=== PATIENT | female | born 1945 | race Caucasian/White ===

== ENCOUNTER 2016-09-30 12:01 | Inpatient (IN) ==
[2016-09-30 12:28] LABS: Basophils # 0.1 K/mcL (0.0-0.2); Basophils % 1.1 %; Eosinophils # 0.2 K/mcL (0.0-0.6); Eosinophils % 2.7 %; Hematocrit 41.5 % (35.3-44.9); Hemoglobin 13.5 g/dL (11.5-15.4); Immature Granulocytes % 0.2 % (0-4); Lymphocytes # 2.7 K/mcL (0.6-4.6); Lymphocytes % 41.3 %; Mean Corpuscular HGB Conc 32.5 g/dL (31.6-35.5); Mean Corpuscular Hemoglobin 31.2 pg (28.0-33.3); Mean Corpuscular Volume 95.8 fL (83.0-100.0); Mean Platelet Volume 9.2 fL (9.4-12.4); Monocytes # 0.6 K/mcL (0.0-1.3); Monocytes % 9.1 %; Platelet Count 242 K/mcL (140-400); Red Blood Count 4.33 M/mcL (3.82-4.97); Red Cell Distribution Width 14.2 % (11.5-14.5); Segmented Neutrophils % 45.6 %
[2016-09-30 12:42] LABS: BUN/Creatinine Ratio 18 (6-26); Blood Urea Nitrogen 16 mg/dL (7-20); Calcium 9.5 mg/dL (8.6-10.8); Carbon Dioxide 26 mEq/L (19-29); Chloride 101 mEq/L (98-109); Glucose 107 mg/dL (70-99); Osmolality,Calculated 284 (280-300); Potassium 4.4 mEq/L (3.5-4.5); Sodium 136 mEq/L (136-145); eGFR For African Americans > 60 (> 60); eGFR For Non-African Americans > 60 (> 60)
[2016-09-30 12:47] LABS: INR 1.1; Prothrombin Time 12.3 Seconds (9.4-12.1)
[2016-09-30 12:49] LABS: Activated Partial Thrombo Time 35.6 Seconds (26.0-36.0)
[2016-09-30 13:41] LABS: Bilirubin,Urine Negative (Negative); Blood,Urine Negative (Negative); Clarity,Urine Clear (Clear); Color,Urine Yellow (Yellow); Glucose,Urine (UA) Normal (Normal); Ketones,Urine Negative (Negative); Leukocyte Esterase,Urine Negative (Negative); Nitrite,Urine Negative (Negative); Protein,Urine Negative (Neg-Trace); Specific Gravity,Urine 1.006 (1.010-1.025); Urobilinogen,Urine Normal (Normal)
--- NOTE | 2016-09-30 15:48 | Emergency Department Note ---
Disposition Clinical Impression: CVA (cerebral vascular accident) Disposition: Admitted As Inpatient Referrals: Marielos Pruett DO [Primary Care Provider] - Neuro HPI - General Stated Complaint: Nuero Symptoms Time Seen by Provider: 09/30/16 12:06 Source: family Limitations: no limitations Nursing Notes Reviewed: Yes Vital Signs Reviewed: Yes - History of Present Illness HPI Narrative: Patient is a 71-year-old female who is complaining of symptoms for the last 3 days involving some numbness and heaviness feeling in her left side of her body and also states her left arm feels a little weak. She states the symptoms have been waxing and waning she was more concerned so she came in today for evaluation. Symptom Onset Unknown: Yes Location: left arm, left leg Severity: mild Quality: weakness, numbness Symptoms Improving: No Improves with: none Worsens with: none Associated symptoms: Reports: denies other symptoms Treatments Prior to Arrival: none - Related Data Allergies/Adverse Reactions: Allergies Allergy/AdvReac Type Severity Reaction Status Date / Time sulfacetamide Allergy Confusion Verified 01/06/16 10:50 [From Sulfamide] atorvastatin [From Lipitor] AdvReac Insomnia Verified 01/06/16 10:50 All systems ED: reviewed and negative except as stated. Constitutional: Denies: fever, weight change Cardiovascular: Denies: chest pain, palpitations Gastrointestinal: Denies: nausea, vomiting Past Medical History - Past Medical History Source: patient, old records reviewed, obtained from family, nursing notes reviewed Medical history: Reports: arthritis, diabetes, fibromyalgia, hyperlipidemia, hypertension, renal disease, thyroid disease, other Psychiatric history: Reports: anxiety, depression - Social History Smoking Status: Never smoker Smokeless Tobacco Status: No Alcohol use: Reports: none Drug use: Reports: none Physical Exam - General Limitations: no limitations General appearance: alert - Head Head exam: atraumatic, normocephalic, normal inspection - Eye Eye exam: Present: normal appearance, PERRL, EOMI - Expanded Eye Exam Pupils: Left: reactive - ENT ENT exam: normal exam, normal oropharynx, mucous membranes moist - Expanded ENT Exam External ear exam: Present: normal external inspection Mouth exam: Present: normal external inspection Teeth exam: Present: normal inspection Throat exam: Present: normal inspection - Neck Neck exam: Present: normal inspection, full ROM, trachea midline - Chest Chest inspection: Present: normal inspection, symmetric chest wall rise - Respiratory Respiratory exam: Present: normal lung sounds bilaterally - Cardiovascular Cardiovascular exam: Present: regular rate, normal rhythm, normal heart sounds - Abdominal Exam Abdominal exam: Present: soft, Non-Tender. Absent: tenderness, distention, guarding, rebound, rigidity - Extremities Exam Extremities exam: Present: normal inspection, full ROM. Absent: tenderness, pedal edema - Expanded Upper Extremity Exam Shoulder exam: Present: normal inspection, full ROM Arm exam: Present: normal inspection, full ROM Elbow exam: Present: normal inspection, full ROM Forearm/Wrist exam: Present: normal inspection, full ROM Hand exam: Present: normal inspection, full ROM Vascular exam: Normal: capillary refill, radial pulse - Expanded Lower Extremity Exam Hip/Pelvis exam: Present: normal inspection, full ROM Upper leg exam: Present: normal inspection, full ROM Knee exam: Present: normal inspection, full ROM Lower leg exam: Present: normal inspection, full ROM Ankle exam: Present: normal inspection, full ROM Foot/toe exam: Present: normal inspection, full ROM Neurovascular/Tendon exam: Absent: motor deficit, sensory deficit, tendon deficit - Back Exam Back exam: Present: normal inspection, full ROM. Absent: tenderness - Neurological Exam Neurological exam: Present: alert, oriented X3 - Expanded Neurological Exam Patient oriented to: Present: person, place, time Motor strength - LUE: 4/5 (slightly decreased 3d specialist strenght) Coma Scale Eye Opening: Spontaneous Coma Scale Motor Response: Obeys Commands Coma Scale Verbal Response: Oriented Coma Scale Total: 15 - Psychiatric Psychiatric exam: Present: normal affect, normal mood - Skin Skin exam: Present: warm, dry, intact, normal color Course - Consultations Consultation #1: dr. ramsey increase to full dose aspirin Time: 16:21 Vital Signs Temperature 97.3 F L 09/30/16 12:14 Pulse Rate 62 09/30/16 12:14 Respiratory Rate 16 09/30/16 12:14 Blood Pressure 124/63 09/30/16 12:14 O2 Sat by Pulse Oximetry 96 09/30/16 12:14 Temperature 97.3 F L 09/30/16 12:14 Pulse Rate 58 09/30/16 15:00 Respiratory Rate 16 09/30/16 15:00 Blood Pressure 105/54 09/30/16 15:00 O2 Sat by Pulse Oximetry 96 09/30/16 15:00 Oxygen Delivery Oxygen Delivery Room Air Neuro Symptoms/Deficit - Differential Diagnosis Likely: cerebrovascular accident, subarachnoid hemorrhage, transient cerebral ischemia, multiple sclerosis, convulsions - Medical Records Medical records reviewed: Yes I reviewed the patient's medical records. - Lab Data Lab results reviewed: Yes I reviewed the patient's lab results. Result diagrams: 09/30/16 12:20 09/30/16 12:20 Lab Results 09/30/16 09/30/16 09/30/16 Range/Units 12:20 12:20 12:20 WBC 6.6 (4.3-11.1) K/mcL RBC 4.33 (3.82-4.97) M/mcL Hgb 13.5 (11.5-15.4) g/dL Hct 41.5 (35.3-44.9) % MCV 95.8 (83.0-100.0) fL MCH 31.2 (28.0-33.3) pg MCHC 32.5 (31.6-35.5) g/dL RDW 14.2 (11.5-14.5) % Plt Count 242 (140-400) K/mcL MPV 9.2 L (9.4-12.4) fL Immature Gran % 0.2 (0-4) % Seg Neutrophils % 45.6 % Lymphocytes % 41.3 % Monocytes % 9.1 % Eosinophils % 2.7 % Basophils % 1.1 % Neutrophils # 3.0 (1.6-8.9) K/mcL Lymphocytes # 2.7 (0.6-4.6) K/mcL Monocytes # 0.6 (0.0-1.3) K/mcL Eosinophils # 0.2 (0.0-0.6) K/mcL Basophils # 0.1 (0.0-0.2) K/mcL PT 12.3 H (9.4-12.1) Seconds INR 1.1 APTT 35.6 (26.0-36.0) Seconds Sodium 136 (136-145) mEq/L Potassium 4.4 (3.5-4.5) mEq/L Chloride 101 (98-109) mEq/L Carbon Dioxide 26 (19-29) mEq/L BUN 16 (7-20) mg/dL Creatinine 0.89 (0.57-1.11) mg/dL Est GFR ( Amer) > 60 (> 60) Est GFR (Non-Af Amer) > 60 (> 60) BUN/Creatinine Ratio 18 (6-26) Glucose 107 H (70-99) mg/dL Calculated Osmolality 284 (280-300) Calcium 9.5 (8.6-10.8) mg/dL Troponin I (0-0.03) ng/mL Urine Color (Yellow) Urine Clarity (Clear) Urine pH (5.0-8.0) pH Units Ur Specific [place] (1.010-1.025) Urine Protein (Neg-Trace) mg/dL Urine Glucose (UA) (Normal) mg/dL Urine Ketones (Negative) mg/dL Urine Blood (Negative) Urine Nitrite (Negative) Urine Bilirubin (Negative) Urine Urobilinogen (Normal) mg/dL Ur Leukocyte Esterase (Negative) Ur Culture Indicated? (NO) 09/30/16 09/30/16 Range/Units 12:20 13:24 WBC (4.3-11.1) K/mcL RBC (3.82-4.97) M/mcL Hgb (11.5-15.4) g/dL Hct (35.3-44.9) % MCV (83.0-100.0) fL MCH (28.0-33.3) pg MCHC (31.6-35.5) g/dL RDW (11.5-14.5) % Plt Count (140-400) K/mcL MPV (9.4-12.4) fL Immature Gran % (0-4) % Seg Neutrophils % % Lymphocytes % % Monocytes % % Eosinophils % % Basophils % % Neutrophils # (1.6-8.9) K/mcL Lymphocytes # (0.6-4.6) K/mcL Monocytes # (0.0-1.3) K/mcL Eosinophils # (0.0-0.6) K/mcL Basophils # (0.0-0.2) K/mcL PT (9.4-12.1) Seconds INR APTT (26.0-36.0) Seconds Sodium (136-145) mEq/L Potassium (3.5-4.5) mEq/L Chloride (98-109) mEq/L Carbon Dioxide (19-29) mEq/L BUN (7-20) mg/dL Creatinine (0.57-1.11) mg/dL Est GFR ( Amer) (> 60) Est GFR (Non-Af Amer) (> 60) BUN/Creatinine Ratio (6-26) Glucose (70-99) mg/dL Calculated Osmolality (280-300) Calcium (8.6-10.8) mg/dL Troponin I 0.01 (0-0.03) ng/mL Urine Color Yellow (Yellow) Urine Clarity Clear (Clear) Urine pH 7.0 (5.0-8.0) pH Units Ur Specific [place] 1.006 L (1.010-1.025) Urine Protein Negative (Neg-Trace) mg/dL Urine Glucose (UA) Normal (Normal) mg/dL Urine Ketones Negative (Negative) mg/dL Urine Blood Negative (Negative) Urine Nitrite Negative (Negative) Urine Bilirubin Negative (Negative) Urine Urobilinogen Normal (Normal) mg/dL Ur Leukocyte Esterase Negative (Negative) Ur Culture Indicated? NO (NO) - Radiology Data Radiology results reviewed: Yes I reviewed the patient's radiology results. TPA Checklist - LKW: 3-4.5 hrs Add. Contraindications Patient/family understanding: The patient/family members have been counseled and understood the risk, benefit , and alternatives of treatment.
[2016-09-30] MEDS ORDERED: Aspirin 81 MG TAB.CHEW PO STA (16:12)
--- NOTE | 2016-09-30 19:55 | Electrocardiograph Report ---
[place] [email or web address] 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
[2016-09-30] MEDS ORDERED: Naloxone 0.4 MG/ML INJ IVP PRN (20:20)
[2016-09-30] MEDS ORDERED: Saline Nasal Spray 44 ML BOTTLE NS PRN (20:23)
[2016-09-30] MEDS ORDERED: Dextrose Gel 15 GM PO PRN ×2 (20:27)
[2016-09-30] MEDS ORDERED: *HR* Dextrose 50 % in Water (Syg) 50 ML SYRINGE IVP PRN (20:27)
--- NOTE | 2016-09-30 20:47 | Internal Med History&Physical ---
<MedranoLaurence M - Last Filed: 09/30/16 23:51> Date of Encounter: 09/30/16 Time of Encounter: 20:39 Assessment and Plan (1) CVA (cerebral vascular accident) Current visit: Yes Status: Acute Patient reporting left sided weakness, lip numbness and left sided facial tingling. MRI of the brain shwed lat acute to subacute lacunar infarct in the right thalamus with no significant mass effect or midline shift with a chronic lacunar infarct in the left ashia. Patient with weakness in the LUE and LLE on exam. Given 325mg of aspirin in ED. Neurology consulted echocardiogram ordered MR angio of head and neck without contrast ordered continue low-dose aspirin and home dose of Pravastatin tomorrow Await recommendations from neurology for initiation of possible second anti- platelet agent Lipid panel with AM labs PT/OT and speech therapy consulted. 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 (2) Type 2 diabetes mellitus Current visit: Yes Status: Acute Diabetic diet Well controlled as evidenced by last Hgb A1c of 5.4% in June check blood sugar ACHS continue basal dose of insulin 20u SQ Levemir daily Low dose sliding scale ACHS hypoglycemic protocol Qualifiers: Diabetes mellitus complication status: with neurologic complications Diabetes mellitus complication detail: with polyneuropathy Diabetes mellitus correction insulin use: with correction use Qualified Code(s): E11.42 - Type 2 diabetes mellitus with diabetic polyneuropathy; Z79.4 - long term care pharmacist (current) use of insulin (3) Hypertension Current visit: Yes Status: Acute Continue home doses of atenolol, lisinopril and spironolactone. Qualifiers: Hypertension type: essential hypertension Qualified Code(s): I10 - Essential (primary) hypertension (4) DVT prophylaxis Current visit: Yes Status: Acute Ambulate with assistance anti-embolic stockings Lovenox 40mg SQ daily Internal Medicine - H&P: HPI Chief complaint: left sided weakness Admitted From: Emergency Dept Plans for Post Hospital Care: Home History of present illness: Ms. Christian is a 71 year old female with hypertension, hyperlipidemia, diabetes, hypothyroid, CAD, neuropathy, arthritis, and fibromyalgia presented to the emergency department today with concerns about left-sided weakness. She reports that several days ago her left arm started having tingling and which progressed to numbness and she noticed she had trouble walking on and off. She reports that this morning her left arm was heavy and she could not lift anything in addition to that when she woke up this morning her lips were numb in the left side of her face felt numb and tingly. She denies any slurred speech, trouble swallowing, lightheadedness, dizziness, vision changes, or hearing changes. She denies any trouble with word finding, memory, or confusion. She is also reporting left-sided abdominal pain, but no problems with bowel movements, no dysuria. She denies any nausea, vomiting, fever, chills, sweats, body aches. Evaluation in the emergency department included a CT of the abdomen and pelvis which showed no acute abnormality. Bone and was negative at 0.01. MRI of her head and brain showed a late acute to subacute lacunar infarct in the right thalamus with no significant mass effect or midline shift. Also a chronic lacunar infarct in the left ashia. On exam, patient is alert and oriented, in no acute distress. Cranial nerves are intact , extraocular movement intact, no pronator drift. She does have noticeable left upper extremity weakness compared to the right, mild left lower extremity weakness compared to the right. Lungs are clear bilaterally to auscultation, heart has regular rate and rhythm. Past Med Surg Social Fam HX - Past Medical History Medical history: arthritis, diabetes, fibromyalgia, hyperlipidemia, hypertension , renal disease, thyroid disease, other Psychiatric history: anxiety, depression - Past Surgical History Surgical History: hysterectomy - Social History Smoking Status: Never smoker Smokeless Tobacco Status: No Alcohol use: none Drug use: none - Family History Mother Living Status: Age at : 52 Cause of : CVA Father Living Status: Age at : 72 Cause of : CVA Internal Medicine - H&P: Meds Acetaminophen [Tylenol] 500 mg PO Q6HR PRN 09/30/16 [History] Allopurinol [Zyloprim 300 MG] 300 mg PO DAILY 09/30/16 [History] Aspirin Enteric Coated [Aspirin EC] 81 mg PO DAILY 09/30/16 [History] Atenolol [Tenormin] 12.5 mg PO DAILY 09/30/16 [History] Cranberry Fruit Extract/Vit C [Azo Cranberry Softgel] 1 each PO DAILY 09/30/16 [ History] Cyclobenzaprine HCl 2.5 - 5 mg PO HS PRN 09/30/16 [History] Ergocalciferol (VITAMIN D2) [Vitamin D2] 50,000 unit PO ROLDAN 09/30/16 [History] Fexofenadine HCl [Allergy Relief] 180 mg PO DAILY 09/30/16 [History] Fluticasone Propionate Nasal [Flonase] 50 mcg NS DAILY 09/30/16 [History] Insulin NPH, HUMAN [HumuLIN N] 20 unit SQ QAM 09/30/16 [History] Insulin Regular Human [HumuLIN R] 6 unit SQ QAM 09/30/16 [History] Insulin Regular Human [HumuLIN R] 8 unit SQ QPM 09/30/16 [History] L. Acidophilus/L.bulgaricus [Lactinex Chewable Tablet] 1 each PO BID 09/30/16 [ History] Levothyroxine [Synthroid] 75 mcg PO 0630 09/30/16 [History] Lisinopril [Lisinopril] 2.5 mg PO DAILY 09/30/16 [History] [place]-3 Fatty Acids [Fish Oil] 300 mg PO TID 09/30/16 [History] Omeprazole Magnesium [Prilosec Otc] 20 mg PO DAILY 09/30/16 [History] Potassium Chloride [K-Tab ER] 10 meq PO QPM 09/30/16 [History] Potassium Chloride [Klor-Con 10] 20 meq PO QAM AND QHS 09/30/16 [History] Pravastatin Sodium [Pravachol] 20 mg PO HS 09/30/16 [History] Pregabalin [Lyrica] 150 mg PO BID 09/30/16 [History] Saline Nasal [place] [[place] Nasal [place]] 2 spray NS Q4H PRN 09/30/16 [History] Spironolactone [Aldactone] 25 mg PO BID 09/30/16 [History] Venlafaxine [Effexor] 37.5 mg PO DAILY 09/30/16 [History] Allergies sulfacetamide [From Sulfamide] Allergy (Verified 01/06/16 10:50) Confusion atorvastatin [From Lipitor] Adverse Reaction (Verified 01/06/16 10:50) Insomnia All Systems PM: A 10-system review of systems was performed and is negative for pertinent findings except as documented above in the HPI. - Constitutional Constitutional: no chills, no fever(s), no night sweats - EENT Eyes: no change in vision, no discharge, no pain, no photophobia Ears: no ear discharge, no ear pain, no tinnitus Nose, mouth and throat: no dysphagia, no nasal discharge, no neck pain, no sore throat - Cardiovascular Cardiovascular ROS IM: no chest pain, no diaphoresis, no dyspnea, no lightheadedness, no palpitations, no syncope - Respiratory Respiratory: no cough, no dyspnea, no wheezing, no excessive phlegm production - Gastrointestinal Gastrointestinal: abdominal pain (left sided), no diarrhea, no hematemesis, no hematochezia, no melena, no nausea, no vomiting - Genitourinary Genitourinary: no change in urinary stream, no dysuria, no flank pain, no hematuria - Musculoskeletal Musculoskeletal ROS IM: numbness (LUE), tingling - Integumentary Integumentary IM: no rash, no unusual bruising - Neurological Neurological ROS: focal weakness (left sided: left upper extremity, left lower extremity), numbness (Lips, left side of her face, left arm), tingling, no confusion, no convulsions, no tremor(s) - Hematologic/Lymphatic Hematologic/Lymphatic: no easy bruising - Constitutional Vitals: Temp Pulse Resp BP Pulse Ox 97.3 F L 65 16 142/80 96 09/30/16 12:14 09/30/16 19:30 09/30/16 19:46 09/30/16 19:46 09/30/16 19:30 General appearance: Present: A&O X 3, pleasant, no acute distress - Head Head exam: Present: atraumatic, normocephalic - Eye Eye exam: Present: PERRL, conjuntiva pink, sclera anicteric - Neck Neck exam general surgery: Present: supple, trachea midline. Absent: lymphadenopathy - Respiratory Respiratory exam: Present: CTAB. Absent: accessory muscle use, rales, rhonchi, wheezes - Cardiovascular Cardiovascular exam: Present: RRR, +S1, +S2. Absent: diastolic murmur, gallop, rubs, systolic murmur - GI/Abdominal GI/Abdominal exam: Present: normal bowel sounds, soft, tenderness (left upper quadrant), no peritoneal signs. Absent: distended - Extremities Exam Extremities exam: Present: warm, radial pulses palpable and symetrical. Absent : calf tenderness, cyanotic, pedal edema - Neurological Exam Neurological exam: Present: CN II-XII intact, oriented X3. Absent: pronater drift, facial droop, speech deficit - Expanded Neurological Exam Cranial Nerves: EOM's intact PM: Normal, gag reflex PM: Normal, nystagmus PM: Abnormal Left, Abnormal Right (horizontal nystagmus), tongue deviation PM: Normal Cerebellar function: finger to nose: Normal Upper motor neuron: pronator drift: Normal Neuro motor strength exam: LUE: 3, RUE: 5, LLE: 4, RLE: 5 - Skin Skin exam: Present: dry, intact Internal Med - H&P Results - Labs CBC & Chem 7: 09/30/16 12:20 09/30/16 12:20 Labs: All Lab Results (24 Hours) 09/30/16 09/30/16 09/30/16 Range/Units 12:20 12:20 12:20 WBC 6.6 (4.3-11.1) K/mcL RBC 4.33 (3.82-4.97) M/mcL Hgb 13.5 (11.5-15.4) g/dL Hct 41.5 (35.3-44.9) % MCV 95.8 (83.0-100.0) fL MCH 31.2 (28.0-33.3) pg MCHC 32.5 (31.6-35.5) g/dL RDW 14.2 (11.5-14.5) % Plt Count 242 (140-400) K/mcL MPV 9.2 L (9.4-12.4) fL Immature Gran % 0.2 (0-4) % Seg Neutrophils % 45.6 % Lymphocytes % 41.3 % Monocytes % 9.1 % Eosinophils % 2.7 % Basophils % 1.1 % Neutrophils # 3.0 (1.6-8.9) K/mcL Lymphocytes # 2.7 (0.6-4.6) K/mcL Monocytes # 0.6 (0.0-1.3) K/mcL Eosinophils # 0.2 (0.0-0.6) K/mcL Basophils # 0.1 (0.0-0.2) K/mcL PT 12.3 H (9.4-12.1) Seconds INR 1.1 APTT 35.6 (26.0-36.0) Seconds Sodium 136 (136-145) mEq/L Potassium 4.4 (3.5-4.5) mEq/L Chloride 101 (98-109) mEq/L Carbon Dioxide 26 (19-29) mEq/L BUN 16 (7-20) mg/dL Creatinine 0.89 (0.57-1.11) mg/dL Est GFR ( Amer) > 60 (> 60) Est GFR (Non-Af Amer) > 60 (> 60) BUN/Creatinine Ratio 18 (6-26) Glucose 107 H (70-99) mg/dL Calculated Osmolality 284 (280-300) Calcium 9.5 (8.6-10.8) mg/dL Troponin I (0-0.03) ng/mL Urine Color (Yellow) Urine Clarity (Clear) Urine pH (5.0-8.0) pH Units Ur Specific [place] (1.010-1.025) Urine Protein (Neg-Trace) mg/dL Urine Glucose (UA) (Normal) mg/dL Urine Ketones (Negative) mg/dL Urine Blood (Negative) Urine Nitrite (Negative) Urine Bilirubin (Negative) Urine Urobilinogen (Normal) mg/dL Ur Leukocyte Esterase (Negative) Ur Culture Indicated? (NO) 09/30/16 09/30/16 Range/Units 12:20 13:24 WBC (4.3-11.1) K/mcL RBC (3.82-4.97) M/mcL Hgb (11.5-15.4) g/dL Hct (35.3-44.9) % MCV (83.0-100.0) fL MCH (28.0-33.3) pg MCHC (31.6-35.5) g/dL RDW (11.5-14.5) % Plt Count (140-400) K/mcL MPV (9.4-12.4) fL Immature Gran % (0-4) % Seg Neutrophils % % Lymphocytes % % Monocytes % % Eosinophils % % Basophils % % Neutrophils # (1.6-8.9) K/mcL Lymphocytes # (0.6-4.6) K/mcL Monocytes # (0.0-1.3) K/mcL Eosinophils # (0.0-0.6) K/mcL Basophils # (0.0-0.2) K/mcL PT (9.4-12.1) Seconds INR APTT (26.0-36.0) Seconds Sodium (136-145) mEq/L Potassium (3.5-4.5) mEq/L Chloride (98-109) mEq/L Carbon Dioxide (19-29) mEq/L BUN (7-20) mg/dL Creatinine (0.57-1.11) mg/dL Est GFR ( Amer) (> 60) Est GFR (Non-Af Amer) (> 60) BUN/Creatinine Ratio (6-26) Glucose (70-99) mg/dL Calculated Osmolality (280-300) Calcium (8.6-10.8) mg/dL Troponin I 0.01 (0-0.03) ng/mL Urine Color Yellow (Yellow) Urine Clarity Clear (Clear) Urine pH 7.0 (5.0-8.0) pH Units Ur Specific [place] 1.006 L (1.010-1.025) Urine Protein Negative (Neg-Trace) mg/dL Urine Glucose (UA) Normal (Normal) mg/dL Urine Ketones Negative (Negative) mg/dL Urine Blood Negative (Negative) Urine Nitrite Negative (Negative) Urine Bilirubin Negative (Negative) Urine Urobilinogen Normal (Normal) mg/dL Ur Leukocyte Esterase Negative (Negative) Ur Culture Indicated? NO (NO) - Diagnostic Studies MRI - head Additional comments: Brain MRI 09/30/16 13:25 IMPRESSION: 1. There appears to be a late acute to subacute lacunar infarct involving the right thalamus. No significant mass effect or midline shift. 2. Chronic lacunar infarct within the left ashia. 3. Mild global parenchymal volume loss. D/ / Ady Cantu MD / Ady Cantu MD Interpreting Provider: Ady Cantu MD CT scan - abdomen Additional comments: Abdomen/Pelvis CT 09/30/16 12:36 IMPRESSION: No acute abnormality. Incidental findings above. D/ / Abdias Bruno MD / Abdias Bruno MD Interpreting Provider: Abdias Bruno MD <Stacy Kovacs R - Last Filed: 10/01/16 10:57> Internal Medicine - H&P: HPI History of present illness: Ms. Christian is a 71 year old female All Systems PM: A 10-system review of systems was performed and is negative for pertinent findings except as documented above in the HPI. - Constitutional Vitals: Temp Pulse Resp BP Pulse Ox 97.7 F 67 16 110/72 95 10/01/16 06:46 10/01/16 06:46 10/01/16 06:46 10/01/16 06:46 10/01/16 06:46 Internal Med - H&P Results - Labs CBC & Chem 7: 10/01/16 05:01 10/01/16 05:01 Labs: Short CBC 10/01/16 Range/Units 05:01 WBC 8.0 (4.3-11.1) K/mcL Hgb 13.3 (11.5-15.4) g/dL Hct 40.6 (35.3-44.9) % Plt Count 214 (140-400) K/mcL Neutrophils # 3.6 (1.6-8.9) K/mcL BMP 10/01/16 05:01 Sodium 138 Potassium 4.1 Chloride 103 Carbon Dioxide 28 BUN 17 Creatinine 0.91 Glucose 98 Calcium 10.0 - Impressions ITS Impressions Head MRA 09/30/16 21:05 IMPRESSION: No flow limiting stenosis or branch occlusion detected. D/ / Mohinder Vaughn MD / Mohinder Vaughn MD Interpreting Provider: Mohinder Vaughn MD Neck MRA 09/30/16 21:05 IMPRESSION: No flow limiting stenosis or branch occlusion detected. D/ / Mohinder Vaughn MD / Mohinder Vaughn MD Interpreting Provider: Mohinder Vaughn MD - Attending Attestation I evaluated the patient and my medical decision-making was reviewed with the GENDER STUDIES PROFESSOR/ Advanced Practice Nurse. I agree with the documented findings, disposition and treatment plan as described except to the extent set forth below. 71 year old female with hypertension, hyperlipidemia, diabetes presented to the emergency department with left-sided weakness, numbness and tingling. O/E: Patient is alert and oriented. The left upper extremity power 4/ 5. MRI of the brain showed late acute to subacute left ninth involving the right thalamus. Chronic lacunar infarct in the left ashia. EKG shows sinus rhythm. A/P: MRA of neck and intracranial vessels; echocardiogram; Neurologic consultation; PT/OT consult. Continue aspirin. Consider adding clopidogrel.
[2016-09-30 20:59] LABS: Hemoglobin A1C 5.4 %
[2016-09-30] MEDS: Spironolactone 25 MG TABLET PO SCH (21:31)
[2016-09-30] MEDS: (Omega-3 Fatty Acids [Fish Oil] 300 MG) PO SCH (21:31)
[2016-09-30] MEDS: Pregabalin 75 MG CAPSULE PO SCH (21:31)
[2016-09-30] MEDS: Insulin LISPRO 300 UNITS/3 ML VIAL SQ SCH (21:32)
[2016-10-01 05:16] LABS: Basophils # 0.1 K/mcL (0.0-0.2); Basophils % 0.7 %; Eosinophils # 0.3 K/mcL (0.0-0.6); Eosinophils % 3.1 %; Hematocrit 40.6 % (35.3-44.9); Hemoglobin 13.3 g/dL (11.5-15.4); Immature Granulocytes % 0.1 % (0-4); Lymphocytes # 3.5 K/mcL (0.6-4.6); Mean Corpuscular HGB Conc 32.8 g/dL (31.6-35.5); Mean Corpuscular Volume 97.6 fL (83.0-100.0); Mean Platelet Volume 9.3 fL (9.4-12.4); Monocytes # 0.7 K/mcL (0.0-1.3); Monocytes % 8.2 %; Neutrophils # 3.6 K/mcL (1.6-8.9); Platelet Count 214 K/mcL (140-400); Red Blood Count 4.16 M/mcL (3.82-4.97); Red Cell Distribution Width 14.3 % (11.5-14.5); Segmented Neutrophils % 44.9 %
[2016-10-01 05:39] LABS: BUN/Creatinine Ratio 19 (6-26); Blood Urea Nitrogen 17 mg/dL (7-20); Carbon Dioxide 28 mEq/L (19-29); Chloride 103 mEq/L (98-109); Chol/HDL Ratio 6.4 (0-4.9); Cholesterol 192 mg/dL (< 200); Glucose 98 mg/dL (70-99); HDL Cholesterol 30 mg/dL (40-59); LDL Cholesterol,Calculated 109 mg/dL (0-99); Osmolality,Calculated 288 (280-300); Potassium 4.1 mEq/L (3.5-4.5); Sodium 138 mEq/L (136-145); Triglycerides 265 mg/dL (< 150); eGFR For African Americans > 60 (> 60); eGFR For Non-African Americans > 60 (> 60)
[2016-10-01] MEDS: *HR* Enoxaparin 40 MG/0.4 ML SYRINGE SQ SCH (05:47)
[2016-10-01] MEDS ORDERED: Aspirin 325 MG TABLET PO SCH ×3 (09:00)
--- NOTE | 2016-10-01 09:27 | Neurology - Consult Note ---
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 Christian is a 71 year old female who presents with left sided weakness along with numbness and tingling. Daughter is at bedside who lives with patient and is able to assist with history. She states the first symptoms was pain in her left shoulder that started 1.5 weeks ago. She then noticed numbness and tingling of the left arm down to her fingers and also her face. Two nights ago, she developed weakness in her face and left arm and leg. She has never felt these episodes in the past and denies any history of stroke. She has no problems with slurred speech, syncope, visual changes, facial droop, nausea, or vomiting. Patient does have significant family history of strokes in both her parents. She is able to get around at home with the help of a walker, but in the past few days, she has needed additional help. Of note, she states she has hypertension and her blood pressures were higher than normal last two weeks. Also has chronic diabetic neuropathy and gets numbness, tingling and pain in her arms and legs. She claims to be compliant on her medication. Past Med Surg Social Fam HX - Past Medical History Medical history: arthritis, diabetes, fibromyalgia, hyperlipidemia, hypertension , renal disease, thyroid disease, other Psychiatric history: anxiety, depression - Past Surgical History Surgical History: hysterectomy - Social History Smoking Status: Never smoker Smokeless Tobacco Status: No Alcohol use: none Drug use: none - Family History Mother Living Status: Age at : 52 Cause of : CVA Father Living Status: Age at : 72 Cause of : CVA Medications and Allergies Acetaminophen [Tylenol] 500 mg PO Q6HR PRN 09/30/16 [History] Allopurinol [Zyloprim 300 MG] 300 mg PO DAILY 09/30/16 [History] Aspirin Enteric Coated [Aspirin EC] 81 mg PO DAILY 09/30/16 [History] Atenolol [Tenormin] 12.5 mg PO DAILY 09/30/16 [History] Cranberry Fruit Extract/Vit C [Azo Cranberry Softgel] 1 each PO DAILY 09/30/16 [ History] Cyclobenzaprine HCl 2.5 - 5 mg PO HS PRN 09/30/16 [History] Ergocalciferol (VITAMIN D2) [Vitamin D2] 50,000 unit PO ROLDAN 09/30/16 [History] Fexofenadine HCl [Allergy Relief] 180 mg PO DAILY 09/30/16 [History] Fluticasone Propionate Nasal [Flonase] 50 mcg NS DAILY 09/30/16 [History] Insulin NPH, HUMAN [HumuLIN N] 20 unit SQ QAM 09/30/16 [History] Insulin Regular Human [HumuLIN R] 6 unit SQ QAM 09/30/16 [History] Insulin Regular Human [HumuLIN R] 8 unit SQ QPM 09/30/16 [History] L. Acidophilus/L.bulgaricus [Lactinex Chewable Tablet] 1 each PO BID 09/30/16 [ History] Levothyroxine [Synthroid] 75 mcg PO 0630 09/30/16 [History] Lisinopril [Lisinopril] 2.5 mg PO DAILY 09/30/16 [History] [place]-3 Fatty Acids [Fish Oil] 300 mg PO TID 09/30/16 [History] Omeprazole Magnesium [Prilosec Otc] 20 mg PO DAILY 09/30/16 [History] Potassium Chloride [K-Tab ER] 10 meq PO QPM 09/30/16 [History] Potassium Chloride [Klor-Con 10] 20 meq PO QAM AND QHS 09/30/16 [History] Pravastatin Sodium [Pravachol] 20 mg PO HS 09/30/16 [History] Pregabalin [Lyrica] 150 mg PO BID 09/30/16 [History] Saline Nasal [place] [[place] Nasal [place]] 2 spray NS Q4H PRN 09/30/16 [History] Spironolactone [Aldactone] 25 mg PO BID 09/30/16 [History] Venlafaxine [Effexor] 37.5 mg PO DAILY 09/30/16 [History] Allergies sulfacetamide [From Sulfamide] Allergy (Verified 01/06/16 10:50) Confusion atorvastatin [From Lipitor] Adverse Reaction (Verified 01/06/16 10:50) Insomnia All Systems: A 10-system review of systems was performed and is negative for pertinent findings except as documented above in the HPI. - Constitutional Constitutional ROS IM: headache(s) (chronic, intermittent), weakness, no fever(s ), no frequent falls - Nose, Mouth, Throat Nose, mouth and throat: headache(s), no dizziness, no epistaxis - Cardiovascular Cardiovascular ROS IM: no chest pain, no dyspnea, no edema, no leg edema - Respiratory Respiratory IM: no cough, no dyspnea, no wheezing - Gastrointestinal Gastrointestinal: no abdominal pain, no diarrhea, no melena, no nausea, no vomiting - Genitourinary Genitourinary ROS: urinary incontinence, no difficulty urinating - Musculoskeletal Musculoskeletal ROS IM: muscle weakness, numbness, tingling - Neurological Neurological ROS: abnormal gait, focal weakness, headache(s), numbness, tingling , weakness, no abnormal hearing, no abnormal speech, no dizziness, no frequent falls, no memory loss, no syncope, no tremor(s) Physical Examination - Vital Signs Vital Signs: Initial Vital Signs Temp Pulse Resp BP Pulse Ox 97.3 F L 62 16 124/63 96 09/30/16 12:14 09/30/16 12:14 09/30/16 12:14 09/30/16 12:14 09/30/16 12:14 - Constitutional General appearance: comfortable - Neurologic Sensorimotor examination: intact Detailed motor examination: other Motor examination - right side: 5/5: deltoids, biceps, 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, 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, hip flexors, quadriceps Motor examination - left side: 4/5: deltoids, biceps, triceps, 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, 5/5: quadriceps Detailed sensory examination: other (decreased sensation on left face and arm) Reflex and gait examination: intact Reflexes: Biceps: 2+, Patella: 2+ Mental Status Examination: awake, alert, oriented to person, oriented to place, oriented to time, follows commands appropriately, answers questions appropriately, no agnosia, no aphasia, no aproxia Cranial nerve examination: PERRL, EOMI, visual rogers intact, corneal reflexes brisk symmetrically, sensory to face intact, mastication intact, no facial asymmetry is present, no dysarthria, hearing is intact symmetrically, soft palate elevates bilaterally upon phonation, gag reflex intact, flexes SCM and trapezius muscles symmetrically with full power, tongue protrudes midline, no atrophy or facial fasiculations present Results - Laboratory Findings CBC and BMP: 10/01/16 05:01 10/01/16 05:01 Abnormal lab findings: Abnormal lab results MPV 9.3 fL (9.4-12.4) L 10/01/16 05:01 PT 12.3 Seconds (9.4-12.1) H 09/30/16 12:20 POC Glucose 105 (58-89) H 09/30/16 21:31 Triglycerides 265 mg/dL (< 150) H 10/01/16 05:01 LDL Cholesterol, Calc 109 mg/dL (0-99) H 10/01/16 05:01 VLDL Cholesterol, Calc 53 mg/dL (< 31) H 10/01/16 05:01 HDL Cholesterol 30 mg/dL (40-59) L 10/01/16 05:01 Cholesterol/HDL Ratio 6.4 (0-4.9) H 10/01/16 05:01 Ur Specific [place] 1.006 (1.010-1.025) L 09/30/16 13:24 Consult Discharge Plan - Plan Referrals: Marielos Pruett DO [Primary Care Provider] -
[2016-10-01] MEDS: Insulin LISPRO 300 UNITS/3 ML VIAL SQ SCH ×4 (11:09→22:34)
[2016-10-01] MEDS: Pregabalin 75 MG CAPSULE PO SCH ×2 (11:18→22:34)
[2016-10-01] MEDS: Loratadine 10 MG TABLET PO SCH (11:18)
[2016-10-01] MEDS: Spironolactone 25 MG TABLET PO SCH ×2 (11:18→22:34)
[2016-10-01] MEDS: Fluticasone Propionate Nasal 50 MCG/SPRAY BOTTLE NS SCH (12:27)
[2016-10-01] MEDS: Insulin DETEMIR 100 UNIT/ML X5UNITS SQ SCH (12:27)
[2016-10-01] MEDS: (Omega-3 Fatty Acids [Fish Oil] 300 MG) PO SCH ×3 (12:28→22:34)
--- NOTE | 2016-10-01 19:45 | Internal Med Progress Note ---
Date of Encounter: 10/01/16 Time of Encounter: 14:00 - Assessment and plan (1) CVA (cerebral vascular accident) Current Visit: Yes Status: Acute Assessment and plan: patient has acute CVA with left-sided numbness and difficulty ambulating. She passed dysphagia screen. She was evaluated by neurology. She was evaluated by PT and OT. We will continue to monitor her on telemetry. Continue with neuro checks. she has very high risk for neurological decline and further morbidity due to sudden change in her neurological condition and possible complication of stroke such as cerebral edema and hemorrhagic conversion. Will offer permissive hypertension. Continue with Plavix which was initiated upon admission. She requires further workup treatment and monitoring for acute CVA and will admit her as an inpatient. For past medical history family history social history and review of systems please refer to the H&P dictated yesterday at this facility. There are no updates or changes. 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 Check hemoglobin A1c. Qualifiers: Diabetes mellitus complication status: with neurologic complications Diabetes mellitus complication detail: with polyneuropathy Diabetes mellitus mcc insulin use: with mcc use Qualified Code(s): E11.42 - Type 2 diabetes mellitus with diabetic polyneuropathy; Z79.4 - shelter (current) use of insulin (3) DVT prophylaxis Current Visit: Yes Status: Acute Assessment and plan: Subcutaneous Lovenox. (4) Hypertension Current Visit: Yes Status: Acute Assessment and plan: We will allow for permissive hypertension. 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 Denies vision changes and headache associated with that. - Constitutional Vitals: Temp Pulse Resp BP Pulse Ox 97.5 F L 60 16 135/71 97 10/01/16 15:49 10/01/16 15:49 10/01/16 15:49 10/01/16 15:49 10/01/16 15:49 General appearance: Present: A&O X 3, pleasant, no acute distress - Head Head exam: Present: atraumatic, normocephalic - Eye Eye exam: Present: PERRL, conjuntiva pink, sclera anicteric Pupils: Present: PERRL - Respiratory Respiratory exam: Present: CTAB. Absent: accessory muscle use, rales, rhonchi, wheezes - Cardiovascular Cardiovascular exam: Present: RRR, +S1, +S2. Absent: diastolic murmur, gallop, rubs, systolic murmur - GI/Abdominal GI/Abdominal exam: Present: normal bowel sounds, soft, no peritoneal signs. Absent: distended, tenderness - Extremities Exam Extremities exam: Present: warm, radial pulses palpable and symetrical. Absent : calf tenderness, cyanotic, pedal edema - Neurological Exam Neurological exam: Present: CN II-XII intact, oriented X3, no focal deficits. Absent: pronater drift, facial droop, speech deficit Additional comments: Except diminished sensation to light touch on the left forearm and left hand. - Skin Skin exam: Present: dry, intact Internal Medicine: Result - Labs CBC & Chem 7: 10/01/16 05:01 10/01/16 05:01 Labs: Short CBC 10/01/16 Range/Units 05:01 WBC 8.0 (4.3-11.1) K/mcL Hgb 13.3 (11.5-15.4) g/dL Hct 40.6 (35.3-44.9) % Plt Count 214 (140-400) K/mcL Neutrophils # 3.6 (1.6-8.9) K/mcL BMP 10/01/16 05:01 Sodium 138 Potassium 4.1 Chloride 103 Carbon Dioxide 28 BUN 17 Creatinine 0.91 Glucose 98 Calcium 10.0 - ABG Interpretation ABG results: PT/INR, D-dimer PT 12.3 Seconds (9.4-12.1) H 09/30/16 12:20 - Impressions Impressions Head MRA 09/30/16 21:05 IMPRESSION: No flow limiting stenosis or branch occlusion detected. D/ / Mohinder Vaughn MD / Mohinder Vaughn MD Interpreting Provider: Mohinder Vaughn MD Neck MRA 09/30/16 21:05 IMPRESSION: No flow limiting stenosis or branch occlusion detected. D/ / Mohinder Vaughn MD / Mohinder Vaughn MD Interpreting Provider: Mohinder Vaughn MD Consult Discharge Plan - Plan Referrals: Marielos Pruett DO [Primary Care Provider] -
[2016-10-02] MEDS: *HR* Enoxaparin 40 MG/0.4 ML SYRINGE SQ SCH (06:07)
[2016-10-02 06:41] LABS: Basophils # 0.1 K/mcL (0.0-0.2); Basophils % 1.1 %; Eosinophils # 0.3 K/mcL (0.0-0.6); Hematocrit 42.2 % (35.3-44.9); Hemoglobin 13.4 g/dL (11.5-15.4); Immature Granulocytes % 0.1 % (0-4); Lymphocytes # 3.7 K/mcL (0.6-4.6); Lymphocytes % 43.8 %; Mean Corpuscular HGB Conc 31.8 g/dL (31.6-35.5); Mean Corpuscular Hemoglobin 30.5 pg (28.0-33.3); Mean Corpuscular Volume 95.9 fL (83.0-100.0); Mean Platelet Volume 9.3 fL (9.4-12.4); Monocytes # 0.8 K/mcL (0.0-1.3); Neutrophils # 3.6 K/mcL (1.6-8.9); Platelet Count 237 K/mcL (140-400); Red Cell Distribution Width 14.1 % (11.5-14.5)
[2016-10-02 06:43] VITALS: BP 93/57
[2016-10-02 06:48] LABS: BUN/Creatinine Ratio 21 (6-26); Blood Urea Nitrogen 19 mg/dL (7-20); Calcium 9.3 mg/dL (8.6-10.8); Carbon Dioxide 26 mEq/L (19-29); Chloride 104 mEq/L (98-109); Glucose 100 mg/dL (70-99); Osmolality,Calculated 290 (280-300); Potassium 4.3 mEq/L (3.5-4.5); Sodium 139 mEq/L (136-145); eGFR For African Americans > 60 (> 60); eGFR For Non-African Americans > 60 (> 60)
[2016-10-02] MEDS: Insulin LISPRO 300 UNITS/3 ML VIAL SQ SCH ×2 (08:00→12:04)
--- NOTE | 2016-10-02 11:13 | Discharge Summary ---
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 Qualified Code(s): E11.42 - Type 2 diabetes mellitus with diabetic polyneuropathy; 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 (3) DVT prophylaxis Priority: Secondary Status: Acute (4) Hypertension Priority: Secondary Status: Acute Qualifiers: Hypertension type: essential hypertension Qualified Code(s): I10 - Essential (primary) hypertension - Discharge Medications Prescriptions: Clopidogrel [Plavix] 75 mg PO DAILY #30 tablet Pravastatin Sodium [Pravachol] 40 mg PO DAILY #30 tablet Home Medications: Acetaminophen [Tylenol] 500 mg PO Q6HR PRN 09/30/16 [History] Allopurinol [Zyloprim 300 MG] 300 mg PO DAILY 09/30/16 [History] Aspirin Enteric Coated [Aspirin EC] 81 mg PO DAILY 09/30/16 [History] Atenolol [Tenormin] 12.5 mg PO DAILY 09/30/16 [History] Cranberry Fruit Extract/Vit C [Azo Cranberry Softgel] 1 each PO DAILY 09/30/16 [ History] Cyclobenzaprine HCl 2.5 - 5 mg PO HS PRN 09/30/16 [History] Ergocalciferol (VITAMIN D2) [Vitamin D2] 50,000 unit PO ROLDAN 09/30/16 [History] Fexofenadine HCl [Allergy Relief] 180 mg PO DAILY 09/30/16 [History] Fluticasone Propionate Nasal [Flonase] 50 mcg NS DAILY 09/30/16 [History] Insulin NPH, HUMAN [HumuLIN N] 20 unit SQ QAM 09/30/16 [History] Insulin Regular Human [Humulin R] 6 unit SQ QAM 09/30/16 [History] Insulin Regular Human [Humulin R] 8 unit SQ QPM 09/30/16 [History] L. Acidophilus/L.bulgaricus [Lactinex Chewable Tablet] 1 each PO BID 09/30/16 [ History] Levothyroxine [Synthroid] 75 mcg PO 0630 09/30/16 [History] Lisinopril 2.5 mg PO DAILY 09/30/16 [History] [place]-3 Fatty Acids [Fish Oil] 300 mg PO TID 09/30/16 [History] Omeprazole Magnesium [Prilosec Otc] 20 mg PO DAILY 09/30/16 [History] Potassium Chloride [K-Tab ER] 10 meq PO QPM 09/30/16 [History] Potassium Chloride [Klor-Con 10] 20 meq PO QAM AND QHS 09/30/16 [History] Pregabalin [Lyrica] 150 mg PO BID 09/30/16 [History] Saline Nasal [place] [[place] Nasal [place]] 2 spray NS Q4H PRN 09/30/16 [History] Spironolactone [Aldactone] 25 mg PO BID 09/30/16 [History] Venlafaxine [Effexor] 37.5 mg PO DAILY 09/30/16 [History] Clopidogrel [Plavix] 75 mg PO DAILY #30 tablet 10/02/16 [Rx] Pravastatin Sodium [Pravachol] 40 mg PO DAILY #30 tablet 10/02/16 [Rx] Allergies/Adverse Reactions: Allergies sulfacetamide [From Sulfamide] Allergy (Verified 01/06/16 10:50) Confusion atorvastatin [From Lipitor] Adverse Reaction (Verified 01/06/16 10:50) Insomnia Date of admission: 10/01/16 20:09 Primary care physician: Marielos Pruett DO - Patient Status Disposition: Home Health Service Condition: Good Functional capacity at discharge: independent ambulation Overall status at discharge: patient is back to baseline - Discharge Instructions Instructions: Ischemic Stroke (DC), Ischemic Stroke (GEN), Ischemic Stroke, Rn Compliance (GEN) Follow Up With: Marielos Pruett DO [Primary Care Provider] - - Diet and Activity Activity: as per physical therapy Diet: advance to your usual diet, diabetic diet, low fat, low cholesterol, low salt diet Hospital course: Ms. Christian is a 71 year old female with hypertension, hyperlipidemia, diabetes, hypothyroid, CAD, neuropathy, arthritis, and fibromyalgia presented to the emergency department today with concerns about left-sided weakness. She reports that several days ago her left arm started having tingling and which progressed to numbness and she noticed she had trouble walking on and off. She reports that this morning her left arm was heavy and she could not lift anything in addition to that when she woke up this morning her lips were numb in the left side of her face felt numb and tingly. She denies any slurred speech, trouble swallowing, lightheadedness, dizziness, vision changes, or hearing changes. She denies any trouble with word finding, memory, or confusion. She is also reporting left-sided abdominal pain, but no problems with bowel movements, no dysuria. She denies any nausea, vomiting, fever, chills, sweats, body aches. Evaluation in the emergency department included a CT of the abdomen and pelvis which showed no acute abnormality. Bone and was negative at 0.01. MRI of her head and brain showed a late acute to subacute lacunar infarct in the right thalamus with no significant mass effect or midline shift. Also a chronic lacunar infarct in the left ashia. The patient was admitted to the medical service. She had left-sided weakness and difficulty ambulating. She was evaluated by PT OT. She was evaluated by neurology. She had a stroke workup including MRI of the brain, MRA of the head and neck and echocardiogram which found no evidence of embolic source. She passed dysphagia screening. She improved and was close to her baseline at discharge. She will be discharged home with home health. - Time Spent with Patient Total time spent providing and/or coordinating discharge services: - Constitutional Vitals: Temp Pulse Resp BP Pulse Ox 97.3 F L 63 18 93/57 95 10/02/16 07:00 10/02/16 07:00 10/02/16 07:00 10/02/16 07:00 10/02/16 07:00 General appearance: Present: A&O X 3, pleasant, no acute distress - Respiratory Respiratory exam: Present: CTAB. Absent: accessory muscle use, rales, rhonchi, wheezes - Cardiovascular Cardiovascular exam: Present: RRR, +S1, +S2. Absent: diastolic murmur, gallop, rubs, systolic murmur - GI/Abdominal GI/Abdominal exam: Present: normal bowel sounds, soft, no peritoneal signs. Absent: distended, tenderness
--- NOTE | 2016-10-02 11:16 | Physician Discharge Referral ---
Home Health/Hosp Referral Info Transfer to: Home Health Provider in Charge Post Discharge: PCP - Diagnosis (1) CVA (cerebral vascular accident) Status: Acute (2) Type 2 diabetes mellitus Status: Acute (3) DVT prophylaxis Status: Acute (4) Hypertension Status: Acute - Respiratory Orders Smoking Cessation: Smoking cessation has been advised. For more information, call the [place] Tobacco Quit Line at 7-393-LGFZ-NOW. - Diet/Nutrition Diet/Nutrition Orders: Cardiac, No Concentrated Sweets - Activity Activity Orders: Ambulate - Services Needed Following services are medically necessary services: Nursing, Physical Therapy, Occupational Therapy - Transfer Medications Prescriptions: Clopidogrel [Plavix] 75 mg PO DAILY #30 tablet Pravastatin Sodium [Pravachol] 40 mg PO DAILY #30 tablet Home Medications: Acetaminophen [Tylenol] 500 mg PO Q6HR PRN 09/30/16 [History] Allopurinol [Zyloprim 300 MG] 300 mg PO DAILY 09/30/16 [History] Aspirin Enteric Coated [Aspirin EC] 81 mg PO DAILY 09/30/16 [History] Atenolol [Tenormin] 12.5 mg PO DAILY 09/30/16 [History] Cranberry Fruit Extract/Vit C [Azo Cranberry Softgel] 1 each PO DAILY 09/30/16 [ History] Cyclobenzaprine HCl 2.5 - 5 mg PO HS PRN 09/30/16 [History] Ergocalciferol (VITAMIN D2) [Vitamin D2] 50,000 unit PO ROLDAN 09/30/16 [History] Fexofenadine HCl [Allergy Relief] 180 mg PO DAILY 09/30/16 [History] Fluticasone Propionate Nasal [Flonase] 50 mcg NS DAILY 09/30/16 [History] Insulin NPH, HUMAN [HumuLIN N] 20 unit SQ QAM 09/30/16 [History] Insulin Regular Human [Humulin R] 6 unit SQ QAM 09/30/16 [History] Insulin Regular Human [Humulin R] 8 unit SQ QPM 09/30/16 [History] L. Acidophilus/L.bulgaricus [Lactinex Chewable Tablet] 1 each PO BID 09/30/16 [ History] Levothyroxine [Synthroid] 75 mcg PO 0630 09/30/16 [History] Lisinopril 2.5 mg PO DAILY 09/30/16 [History] [place]-3 Fatty Acids [Fish Oil] 300 mg PO TID 09/30/16 [History] Omeprazole Magnesium [Prilosec Otc] 20 mg PO DAILY 09/30/16 [History] Potassium Chloride [K-Tab ER] 10 meq PO QPM 09/30/16 [History] Potassium Chloride [Klor-Con 10] 20 meq PO QAM AND QHS 09/30/16 [History] Pregabalin [Lyrica] 150 mg PO BID 09/30/16 [History] Saline Nasal [place] [[place] Nasal [place]] 2 spray NS Q4H PRN 09/30/16 [History] Spironolactone [Aldactone] 25 mg PO BID 09/30/16 [History] Venlafaxine [Effexor] 37.5 mg PO DAILY 09/30/16 [History] Clopidogrel [Plavix] 75 mg PO DAILY #30 tablet 10/02/16 [Rx] Pravastatin Sodium [Pravachol] 40 mg PO DAILY #30 tablet 10/02/16 [Rx] Allergies/Adverse Reactions: Allergies sulfacetamide [From Sulfamide] Allergy (Verified 01/06/16 10:50) Confusion atorvastatin [From Lipitor] Adverse Reaction (Verified 01/06/16 10:50) Insomnia Certification: Further, I certify that my clinical findings support that this patient is homebound (i.e. absences from home require considerable and taxing effort and are for medical reasons or yazdanism services or infrequently or short duration when for other reasons) because: Homebound Reason: Patient requires assistance of a person or device to safely leave home, Leaving home requires considerable and taxing effort due to condition Attestation: My signature below is to certify that this patient is under my care and that I, or nurse practitioner, or a physician's assistant housekeeping manager working with me, has a face-to -face encounter with this patient.
[2016-10-02] MEDS: Pregabalin 75 MG CAPSULE PO SCH (12:04)
[2016-10-02] MEDS: Spironolactone 25 MG TABLET PO SCH (12:05)
[2016-10-02] MEDS: (Omega-3 Fatty Acids [Fish Oil] 300 MG) PO SCH (12:06)
[2016-10-02] MEDS: Fluticasone Propionate Nasal 50 MCG/SPRAY BOTTLE NS SCH (12:07)
[2016-10-02] MEDS: Loratadine 10 MG TABLET PO SCH (12:07)
[2016-10-02] MEDS: Insulin DETEMIR 100 UNIT/ML X5UNITS SQ SCH (12:07)
== END 2016-10-02 15:30 | disposition home health service (06) | DRG 66 ==
LOC: 2NENU 12:01 → EMEROO 12:01 → 2NENU 18:09
PROVIDERS: ADMIT Internal Medicine; ATTEND Internal Medicine

== ENCOUNTER 2017-01-28 11:00 | Observation (INO) ==
--- NOTE | 2017-01-28 11:21 | Emergency Department Note ---
Disposition Clinical Impression: CVA (cerebral vascular accident) Qualifiers: CVA mechanism: unspecified Qualified Code(s): I63.9 - Cerebral infarction, unspecified Chest pain Qualifiers: Chest pain type: unspecified Qualified Code(s): R07.9 - Chest pain, unspecified Disposition: Admitted As Inpatient Condition: Undetermined Time of Disposition: 12:57 General Adult HPI - General Chief complaint: ED General Medical Stated complaint: numbess to left arm/chest Time Seen by Provider: 01/28/17 11:17 Source: patient Mode of arrival: wheelchair Limitations: no limitations Nursing Notes Reviewed: Yes Vital Signs Reviewed: Yes - History of Present Illness HPI Narrative: 71-year-old female with history of CVA, arrives to [facility] emergency department complaining of chest discomfort as well as worsening left upper extremity and left-sided chest numbness. The patient states that she has baseline left upper extremity paresthesias from her last CVA roughly 4 months ago. The patient states that roughly 2 days ago she had "complaining of this left sided chest discomfort as well as paresthesias. The patient denies any other complaints including headache, fever, chills, difficulty breathing, unilateral leg swelling. The patient states this is not similar to her previous CVA. She is concerned about her heart but also concerned about another stroke. The patient's daughter convince the patient to come into the emergency department today. The patient has been taking all of her medications as prescribed according to her daughter who is the primary caregiver for the patient. Onset (ago): day(s) (2) Location: chest, left, upper extremity Radiation: non-radiation Pain Severity: moderate Pain Scale: 5 Quality: aching Consistency: intermittent Improves with: nothing Worsens with: nothing Associated symptoms: Reports: chest pain Treatments Prior to Arrival: none - Related Data Home Medications Medication Instructions Recorded Confirmed Acetaminophen [Tylenol] 500 mg PO Q6HR PRN 09/30/16 01/28/17 Allopurinol [Zyloprim 300 MG] 300 mg PO DAILY 09/30/16 01/28/17 Aspirin Enteric Coated [Aspirin EC] 81 mg PO DAILY 09/30/16 01/28/17 Atenolol [Tenormin] 12.5 mg PO DAILY 09/30/16 01/28/17 Cranberry Fruit Extract/Vit C [Azo 1 each PO DAILY 09/30/16 01/28/17 Cranberry Softgel] Cyclobenzaprine HCl 2.5 - 5 mg PO HS PRN 09/30/16 01/28/17 Ergocalciferol (VITAMIN D2) 50,000 unit PO ROLDAN 09/30/16 01/28/17 [Vitamin D2] Fexofenadine HCl [Allergy Relief] 180 mg PO DAILY 09/30/16 01/28/17 Fluticasone Propionate Nasal 1 spray NS DAILY 09/30/16 01/28/17 [Flonase] Insulin NPH, HUMAN [HumuLIN N] 20 unit SQ QAM 09/30/16 01/28/17 Insulin Regular Human [Humulin R] 6 unit SQ QAM 09/30/16 01/28/17 L. Acidophilus/L.bulgaricus 1 tab PO BID 09/30/16 01/28/17 [Lactinex Chewable Tablet] Levothyroxine [Synthroid] 75 mcg PO 0630 09/30/16 01/28/17 Lisinopril 2.5 mg PO DAILY 09/30/16 01/28/17 [place]-3 Fatty Acids [Fish Oil] 300 mg PO TID 09/30/16 01/28/17 Potassium Chloride [K-Tab ER] 10 meq PO QPM 09/30/16 01/28/17 Potassium Chloride [Klor-Con 10] 20 meq PO QAM AND QHS 09/30/16 01/28/17 Pregabalin [Lyrica] 150 mg PO BID 09/30/16 01/28/17 Saline Nasal [place] [[place] Nasal 2 spray NS Q4H PRN 09/30/16 01/28/17 [place]] Spironolactone [Aldactone] 25 mg PO BID 09/30/16 01/28/17 Venlafaxine [Effexor] 37.5 mg PO DAILY 09/30/16 01/28/17 Loperamide [Imodium] 2 mg PO Q4HR PRN 01/28/17 01/28/17 Previous Rx's Medication Instructions Recorded Pravastatin Sodium [Pravachol] 40 mg PO DAILY #30 tablet 10/02/16 Allergies Allergy/AdvReac Type Severity Reaction Status Date / Time sulfacetamide Allergy Confusion Verified 01/28/17 11:11 [From Sulfamide] atorvastatin [From Lipitor] AdvReac Insomnia Verified 01/28/17 11:11 All systems ED: reviewed and negative except as stated. Constitutional: Denies: fever, chills, weakness, weight change Cardiovascular: Reports: chest pain. Denies: palpitations, dyspnea on exertion , edema, syncope Respiratory: Denies: cough, dyspnea, wheezes, hemoptysis, stridor Gastrointestinal: Denies: abdominal pain, nausea, vomiting, diarrhea, constipation, hematemesis, melena, hematochezia Genitourinary: Denies: dysuria, frequency, hematuria, discharge Musculoskeletal: Denies: back pain, neck pain, arthralgia, myalgia Integumentary: Denies: rash, abrasion, lesions Neurological: Reports: numbness. Denies: headache, weakness, paresthesias, confusion, abnormal gait, vertigo Past Medical History - Past Medical History Attestation: Yes The following information was validated with the patient. Source: patient Medical history: Reports: arthritis, CVA, diabetes, fibromyalgia, hyperlipidemia , hypertension, renal disease, thyroid disease, other Surgical history: Reports: hysterectomy Psychiatric history: Reports: anxiety, depression - Social History Smoking Status: Never smoker Smokeless Tobacco Status: No Alcohol use: Reports: none Drug use: Reports: none Physical Exam - General Limitations: no limitations General appearance: alert, in no apparent distress - Head Head exam: atraumatic, normocephalic, normal inspection - Neck Neck exam: Present: normal inspection, full ROM, trachea midline - Chest Chest inspection: Present: normal inspection, symmetric chest wall rise - Respiratory Respiratory exam: Present: normal lung sounds bilaterally - Cardiovascular Cardiovascular exam: Present: regular rate, normal rhythm, normal heart sounds - Abdominal Exam Abdominal exam: Present: soft, Non-Tender. Absent: tenderness, distention, guarding, rebound, rigidity - Extremities Exam Extremities exam: Present: normal inspection, full ROM. Absent: tenderness, pedal edema - Neurological Exam Neurological exam: Present: alert, oriented X3, CN II-XII intact, motor sensory deficit (Baseline in LUE) - Expanded Neurological Exam Patient oriented to: Present: person, place, time Speech: Present: fluid speech Cranial nerves: EOM function (II, III, IV, ): Normal, facial sensation (V): Normal, facial palsy (VII): Normal, gag reflex (IX): Normal, spinal accessory function (XI): Normal, tongue deviation (XII): Normal Cerebellar function: finger to nose: Normal Motor strength - LUE: 4/5 (Baseline) Motor strength - RUE: 5/5 Motor strength - LLE: 5/5 Motor strength - RLE: 5/5 Sensory exam upper extremity: light touch: Abnormal Left (Baseline) Sensory exam lower extremity: light touch: Normal Coma Scale Eye Opening: Spontaneous Coma Scale Motor Response: Obeys Commands Coma Scale Verbal Response: Oriented Coma Scale Total: 15 Course Vital Signs Temperature 97.9 F 01/28/17 11:07 Pulse Rate 60 01/28/17 11:07 Respiratory Rate 16 01/28/17 11:07 Blood Pressure 146/86 01/28/17 11:07 O2 Sat by Pulse Oximetry 97 01/28/17 11:07 Temperature 97.5 F L 01/28/17 14:13 Pulse Rate 54 01/28/17 14:13 Respiratory Rate 16 01/28/17 14:13 Blood Pressure 106/68 01/28/17 14:13 O2 Sat by Pulse Oximetry 93 01/28/17 14:13 Oxygen Delivery Oxygen Delivery Room Air Medical Decision Making - MDM Narrative Medical decision making narrative: Workup here in the emergency department demonstrates no acute process. Given the patient's symptoms ongoing for the past 2 days we did not alert a stroke alert given out of window protocols. The patient will be admitted to the hospital for cardiac workup given the left-sided chest discomfort as well as workup for CVA to include MRI likely. Patient agrees to this plan. We will administer aspirin here in the emergency department. Patient to be admitted to the hospitalist, Dr. Wells. - Medical Records Medical records reviewed: Yes I reviewed the patient's medical records. - Lab Data Lab results reviewed: Yes I reviewed the patient's lab results. Result diagrams: 01/28/17 11:26 01/28/17 11:26 Lab Results 01/28/17 01/28/17 01/28/17 Range/Units 11:26 11:26 11:26 WBC 6.7 (4.3-11.1) K/mcL RBC 4.39 (3.82-4.97) M/mcL Hgb 13.7 (11.5-15.4) g/dL Hct 42.2 (35.3-44.9) % MCV 96.1 (83.0-100.0) fL MCH 31.2 (28.0-33.3) pg MCHC 32.5 (31.6-35.5) g/dL RDW 14.6 H (11.5-14.5) % Plt Count 252 (140-400) K/mcL MPV 9.1 L (9.4-12.4) fL Immature Gran % 0.1 (0-4) % Seg Neutrophils % 43.5 % Lymphocytes % 42.9 % Monocytes % 8.5 % Eosinophils % 4.0 % Basophils % 1.0 % Neutrophils # 2.9 (1.6-8.9) K/mcL Lymphocytes # 2.9 (0.6-4.6) K/mcL Monocytes # 0.6 (0.0-1.3) K/mcL Eosinophils # 0.3 (0.0-0.6) K/mcL Basophils # 0.1 (0.0-0.2) K/mcL Sodium 137 (136-145) mEq/L Potassium 4.5 (3.5-4.5) mEq/L Chloride 102 (98-109) mEq/L Carbon Dioxide 29 (19-29) mEq/L BUN 16 (7-20) mg/dL Creatinine 0.87 (0.57-1.11) mg/dL Est GFR ( Amer) > 60 (> 60) Est GFR (Non-Af Amer) > 60 (> 60) BUN/Creatinine Ratio 18 (6-26) Glucose 113 H (70-99) mg/dL Calculated Osmolality 286 (280-300) Calcium 10.1 (8.6-10.8) mg/dL Troponin I 0.00 (0-0.03) ng/mL - Radiology Data Radiology results reviewed: Yes I reviewed the patient's radiology results. - EKG Data EKG #1 EKG attestation: Yes I reviewed and interpreted this EKG. EKG results narrative: Heart rate 58 bpm. WA interval 180 ms. QTc 47 seconds. Normal axis. Normal sinus rhythm. No ST elevation or ST depression noted. EKG similar to EKG from 09/30/2016. Attestation Statement - Attestation Attestation: I examined this patient and my medical decision-making was reviewed with the Resident Physician. I agree with the documented findings, disposition and treatment plan as described except to the extent set forth below. 71-year-old female with history of CVA presents because of worsening left-sided weakness. She has history of CVA. 4 months ago that left her with some mild left-sided sensory deficits. Over the last 2 days she has had progressively worsening weakness involving the left arm along with recurring episodes of left- sided substernal chest discomfort. This is associated with mild dyspnea. No fevers or chills. No diaphoresis. No nausea vomiting. Denies headache. Morbidly obese elderly female who is talkative and interactive. She has brief moments where she loses her train of thought. Mucous membranes are dry. Pupils are reactive to light. Neck is supple without meningismus signs. No cervical adenopathy. Chest clear to auscultation bilaterally. Cardiac exam regular without rubs or gallops. Abdomen soft, nondistended and nontender. Extremities warm and dry. She has mild asymmetry weakness of the left upper extremity. Decreased sensation along the radial aspect of the left arm and hand. Emergency department workup was unremarkable. Continue with intermittent left- sided chest discomfort. She is admitted for further workup and monitoring.
[2017-01-28 11:39] LABS: Basophils # 0.1 K/mcL (0.0-0.2); Eosinophils # 0.3 K/mcL (0.0-0.6); Hematocrit 42.2 % (35.3-44.9); Hemoglobin 13.7 g/dL (11.5-15.4); Immature Granulocytes % 0.1 % (0-4); Lymphocytes # 2.9 K/mcL (0.6-4.6); Lymphocytes % 42.9 %; Mean Corpuscular HGB Conc 32.5 g/dL (31.6-35.5); Mean Corpuscular Hemoglobin 31.2 pg (28.0-33.3); Mean Corpuscular Volume 96.1 fL (83.0-100.0); Mean Platelet Volume 9.1 fL (9.4-12.4); Monocytes # 0.6 K/mcL (0.0-1.3); Monocytes % 8.5 %; Neutrophils # 2.9 K/mcL (1.6-8.9); Platelet Count 252 K/mcL (140-400); Red Blood Count 4.39 M/mcL (3.82-4.97); Red Cell Distribution Width 14.6 % (11.5-14.5); Segmented Neutrophils % 43.5 %
[2017-01-28 11:51] LABS: BUN/Creatinine Ratio 18 (6-26); Blood Urea Nitrogen 16 mg/dL (7-20); Calcium 10.1 mg/dL (8.6-10.8); Carbon Dioxide 29 mEq/L (19-29); Chloride 102 mEq/L (98-109); Glucose 113 mg/dL (70-99); Osmolality,Calculated 286 (280-300); Potassium 4.5 mEq/L (3.5-4.5); Sodium 137 mEq/L (136-145); eGFR For African Americans > 60 (> 60); eGFR For Non-African Americans > 60 (> 60)
[2017-01-28] MEDS ORDERED: Aspirin 325 MG TABLET PO ONE (12:55)
[2017-01-28] MEDS ORDERED: 0.9 % Sodium Chloride 1,000 ML IVC ONE (13:08)
[2017-01-28] MEDS ORDERED: Naloxone 0.4 MG/ML INJ IVP PRN (14:09)
[2017-01-28] MEDS ORDERED: Saline Nasal Spray 44 ML BOTTLE NS PRN (14:13)
[2017-01-28] MEDS ORDERED: Dextrose Gel 15 GM PO PRN ×2 (14:19)
[2017-01-28] MEDS ORDERED: *HR* Dextrose 50 % in Water (Syg) 50 ML SYRINGE IVP PRN (14:19)
[2017-01-28] MEDS ORDERED: D5% in Water 1,000 ML IVC PRN (14:19)
--- NOTE | 2017-01-28 15:06 | Internal Med History&Physical ---
Date of Encounter: 01/28/17 Time of Encounter: 13:00 Assessment and Plan (1) Left arm numbness Current visit: Yes Status: Acute Pt had MRI done, shows no acute infarct. Patient has a chronic arm numbness after last CVA in September 2016 (2) CVA (cerebral vascular accident) Current visit: Yes Status: Acute History of a CVA. Continue home medications Qualifiers: CVA mechanism: unspecified Qualified Code(s): I63.9 - Cerebral infarction, unspecified (3) Type 2 diabetes mellitus Current visit: No Status: Acute Continue home basal and sliding scale insulin Qualifiers: Diabetes mellitus complication status: with neurologic complications Diabetes mellitus complication detail: with polyneuropathy Diabetes mellitus prison insulin use: with intermodal dispatcher use Qualified Code(s): E11.42 - Type 2 diabetes mellitus with diabetic polyneuropathy; Z79.4 - terminal manager (current) use of insulin (4) DVT prophylaxis Current visit: No Status: Acute Heparin subcutaneously (5) Hypertension Current visit: No Status: Acute Continue home medications. BP is stable Qualifiers: Hypertension type: essential hypertension Qualified Code(s): I10 - Essential (primary) hypertension (6) Chest pain Current visit: Yes Status: Acute Etiology is undetermined. EKG and CXR unremarkable. - Will trend 3 sets of troponin. - Continue cardiac monitoring. - Stress test in a.m. Qualifiers: Chest pain type: precordial pain Qualified Code(s): R07.2 - Precordial pain Internal Medicine - H&P: HPI Chief complaint: Chest pain and left arm numbness Admitted From: Home Plans for Post Hospital Care: Home History of present illness: Ms. Christian is a 71 year old female with history of a CVA present to ER for chest pain and left arm numbness. Patient said that the left arm numbness started about 2 days ago, without weakness. This morning patient has a one episode of chest pain, lasted about 2 hours, patient denies shortness of breath, nausea, or diaphoresis. Patient said that she has similar chest pain several days ago. When I saw patient if she is totally chest pain-free. Patient was admitted for further management. Past Med Surg Social Fam HX - Past Medical History Medical history: arthritis, CVA, diabetes, fibromyalgia, hyperlipidemia, hypertension, renal disease, thyroid disease, other Psychiatric history: anxiety, depression - Past Surgical History Surgical History: hysterectomy - Social History Smoking Status: Never smoker Smokeless Tobacco Status: No Alcohol use: none Drug use: none - Family History Mother Living Status: Father Living Status: Internal Medicine - H&P: Meds Acetaminophen [Tylenol] 500 mg PO Q6HR PRN 09/30/16 [History] Allopurinol [Zyloprim 300 MG] 300 mg PO DAILY 09/30/16 [History] Aspirin Enteric Coated [Aspirin EC] 81 mg PO DAILY 09/30/16 [History] Atenolol [Tenormin] 12.5 mg PO DAILY 09/30/16 [History] Cranberry Fruit Extract/Vit C [Azo Cranberry Softgel] 1 each PO DAILY 09/30/16 [ History] Cyclobenzaprine HCl 2.5 - 5 mg PO HS PRN 09/30/16 [History] Ergocalciferol (VITAMIN D2) [Vitamin D2] 50,000 unit PO ROLDAN 09/30/16 [History] Fexofenadine HCl [Allergy Relief] 180 mg PO DAILY 09/30/16 [History] Fluticasone Propionate Nasal [Flonase] 1 spray NS DAILY 09/30/16 [History] Insulin NPH, HUMAN [HumuLIN N] 20 unit SQ QAM 09/30/16 [History] Insulin Regular Human [Humulin R] 6 unit SQ QAM 09/30/16 [History] L. Acidophilus/L.bulgaricus [Lactinex Chewable Tablet] 1 tab PO BID 09/30/16 [ History] Levothyroxine [Synthroid] 75 mcg PO 0630 09/30/16 [History] Lisinopril 2.5 mg PO DAILY 09/30/16 [History] [place]-3 Fatty Acids [Fish Oil] 300 mg PO TID 09/30/16 [History] Potassium Chloride [K-Tab ER] 10 meq PO QPM 09/30/16 [History] Potassium Chloride [Klor-Con 10] 20 meq PO QAM AND QHS 09/30/16 [History] Pregabalin [Lyrica] 150 mg PO BID 09/30/16 [History] Saline Nasal [place] [[place] Nasal [place]] 2 spray NS Q4H PRN 09/30/16 [History] Spironolactone [Aldactone] 25 mg PO BID 09/30/16 [History] Venlafaxine [Effexor] 37.5 mg PO DAILY 09/30/16 [History] Pravastatin Sodium [Pravachol] 40 mg PO DAILY #30 tablet 10/02/16 [Rx] Loperamide [Imodium] 2 mg PO Q4HR PRN 01/28/17 [History] Allergies sulfacetamide [From Sulfamide] Allergy (Verified 01/28/17 11:11) Confusion atorvastatin [From Lipitor] Adverse Reaction (Verified 01/28/17 11:11) Insomnia All Systems PM: A 10-system review of systems was performed and is negative for pertinent findings except as documented above in the HPI. - Constitutional Vitals: Temp Pulse Resp BP Pulse Ox 97.5 F L 54 16 106/68 93 01/28/17 14:13 01/28/17 14:13 01/28/17 14:13 01/28/17 14:13 01/28/17 14:13 General appearance: Present: A&O X 3, no acute distress, answers questions appropriately - Head Head exam: Present: atraumatic, normocephalic - Eye Eye exam: Present: PERRL, conjuntiva pink, sclera anicteric Pupils: Present: PERRL - Neck Neck exam general surgery: Present: supple, trachea midline. Absent: lymphadenopathy - Respiratory Respiratory exam: Present: CTAB. Absent: accessory muscle use, rales, rhonchi, wheezes - Cardiovascular Cardiovascular exam: Present: RRR, +S1, +S2. Absent: diastolic murmur, gallop, rubs, systolic murmur - GI/Abdominal GI/Abdominal exam: Present: normal bowel sounds, soft, no peritoneal signs. Absent: distended, tenderness - Extremities Exam Extremities exam: Present: warm, radial pulses palpable and symetrical. Absent : calf tenderness, cyanotic, pedal edema - Neurological Exam Neurological exam: Present: CN II-XII intact, oriented X3, no focal deficits. Absent: pronater drift, facial droop, speech deficit - Skin Skin exam: Present: dry, intact Internal Med - H&P Results - Labs CBC & Chem 7: 01/28/17 11:26 01/28/17 11:26 - EKG Data -: EKG Interpreted by Myself EKG shows normal: sinus rhythm Rate: normal
[2017-01-28] MEDS: Insulin LISPRO 300 UNITS/3 ML VIAL SQ SCH ×2 (18:24→22:16)
[2017-01-28] MEDS: *HR* Heparin 5,000 UNIT/ML VIAL SQ SCH (18:36)
[2017-01-28 18:43] LABS: Bilirubin,Urine Negative (Negative); Blood,Urine Negative (Negative); Clarity,Urine Clear (Clear); Color,Urine Yellow (Yellow); Glucose,Urine (UA) Normal (Normal); Ketones,Urine Negative (Negative); Leukocyte Esterase,Urine Negative (Negative); Nitrite,Urine Negative (Negative); Protein,Urine Negative (Neg-Trace); Specific Gravity,Urine 1.007 (1.010-1.025); Urobilinogen,Urine Normal (Normal)
[2017-01-28] MEDS: Acetaminophen 325 MG TABLET PO PRN (22:20)
[2017-01-28] MEDS: Pregabalin 75 MG CAPSULE PO SCH (22:21)
[2017-01-29 01:38] LABS: Basophils # 0.1 K/mcL (0.0-0.2); Basophils % 0.7 %; Eosinophils # 0.3 K/mcL (0.0-0.6); Eosinophils % 3.9 %; Hemoglobin 12.6 g/dL (11.5-15.4); Immature Granulocytes % 0.3 % (0-4); Lymphocytes # 3.6 K/mcL (0.6-4.6); Lymphocytes % 47.9 %; Mean Corpuscular HGB Conc 32.3 g/dL (31.6-35.5); Mean Corpuscular Hemoglobin 31.3 pg (28.0-33.3); Mean Corpuscular Volume 96.8 fL (83.0-100.0); Mean Platelet Volume 9.1 fL (9.4-12.4); Monocytes # 0.6 K/mcL (0.0-1.3); Monocytes % 8.4 %; Neutrophils # 2.9 K/mcL (1.6-8.9); Platelet Count 229 K/mcL (140-400); Red Blood Count 4.03 M/mcL (3.82-4.97); Red Cell Distribution Width 14.4 % (11.5-14.5); Segmented Neutrophils % 38.8 %
[2017-01-29 01:47] LABS: BUN/Creatinine Ratio 18 (6-26); Blood Urea Nitrogen 17 mg/dL (7-20); Calcium 9.8 mg/dL (8.6-10.8); Carbon Dioxide 28 mEq/L (19-29); Chloride 103 mEq/L (98-109); Glucose 85 mg/dL (70-99); Magnesium 1.7 mg/dL (1.6-2.6); Osmolality,Calculated 287 (280-300); Potassium 4.4 mEq/L (3.5-4.5); Sodium 138 mEq/L (136-145); eGFR For African Americans > 60 (> 60); eGFR For Non-African Americans 57 (> 60)
[2017-01-29] MEDS ORDERED: Regadenoson 0.4 MG/5 ML SYRINGE IVP ONE (05:53)
[2017-01-29] MEDS: *HR* Heparin 5,000 UNIT/ML VIAL SQ SCH ×2 (06:24→17:10)
[2017-01-29] MEDS: Insulin LISPRO 300 UNITS/3 ML VIAL SQ SCH ×4 (11:39→20:28)
[2017-01-29] MEDS: Pregabalin 75 MG CAPSULE PO SCH ×2 (11:43→20:27)
[2017-01-29] MEDS: Aspirin Enteric Coated 81 MG Tablet PO SCH (11:44)
[2017-01-29] MEDS: Insulin DETEMIR 100 UNIT/ML X5UNITS SQ SCH (11:49)
--- NOTE | 2017-01-29 15:00 | Electrocardiograph Report ---
[place] [id number] Test Date: 2017-01-28 Pat Name: Betsy Christian Department: [id number] Room: 3B14 Gender: F Business Intelligence Developer: : [id number] Requested By: Juan Francisco Downey Order Number: [id number] Reading MD: Victor Manuel Ricci MD Measurements Intervals [place] Rate: 58 P: 18 AL: 180 QRS: -10 QRSD: 90 T: 15 QT: 411 QTc: 407 Interpretive Statements SINUS BRADYCARDIA LOW QRS VOLTAGE IN PRECORDIAL LEADS Poor R wave progression Electronically Signed On 01-29-2017 14:59:15 EDT by Victor Manuel Ricci MD
--- NOTE | 2017-01-29 18:48 | Internal Med Progress Note ---
Date of Encounter: 01/29/17 Time of Encounter: 10:50 - Assessment and plan (1) CVA (cerebral vascular accident) Current Visit: Yes Status: Acute Assessment and plan: History of CVA in September,. Continue home medications. Qualifiers: CVA mechanism: unspecified Qualified Code(s): I63.9 - Cerebral infarction, unspecified (2) Type 2 diabetes mellitus Current Visit: No Status: Acute Assessment and plan: Chronic. Continue sliding scale insulin, Accu-Cheks before meals at bedtime, diabetic diet. A1c was 5.4 in Nov, 2016. Qualifiers: Diabetes mellitus complication status: with neurologic complications Diabetes mellitus complication detail: with polyneuropathy Diabetes mellitus terminal operations manager insulin use: with terminal operations manager use Qualified Code(s): E11.42 - Type 2 diabetes mellitus with diabetic polyneuropathy; Z79.4 - assistant terminal manager (current) use of insulin (3) Hypertension Current Visit: No Status: Acute Qualifiers: Hypertension type: essential hypertension Qualified Code(s): I10 - Essential (primary) hypertension (4) Chest pain Current Visit: Yes Status: Acute Assessment and plan: Patient reports left upper chest pain with no radiation yesterday she is unsure exactly when it started other than when she first got up. She is also unsure when it stopped. She is pain-free now. She denies shortness of breath, nausea , diaphoresis. She felt that the chest pain was tied to the new feeling in her left arm that she experienced prior to arrival. Her daughter states that she was weak, staggering, and off-balance prior to arrival. Patient has had her first day of a 2 day stress test. EKG was sinus bradycardia 358, rate 58, AR interval 180, QTC 407, QRS duration 90. Troponin was negative. Patient is pain-free. Echocardiogram in September showed LVEF of 60 % with normal chamber size, wall thickness and function. Mild diastolic dysfunction, normal RV structure and function. No evidence of PFO or pulmonary hypertension, no significant valvular dysfunction. We will complete secondary stress test tomorrow. Continue microbiology coordinator labs Treat chest pain as needed Continue aspirin, beta mayelin, lisinopril, and simvastatin. Qualifiers: Chest pain type: precordial pain Qualified Code(s): R07.2 - Precordial pain (5) Left arm numbness Current Visit: Yes Status: Acute Assessment and plan: Chronic. Deficit from prior CVA in September of this year. Patient presented to the emergency department with feeling like her arm was "swelled and heavy". Today she is unable to fill if it is still numb, daughter reports that there is a slight heaviness. Patient states that it basically is unchanged and is at baseline. There is slight weakness with hand grasp on the left. Patient had MRI that showed no acute intracranial abnormality, and a remote lacunar infarct right thalamus. Patient and daughter are both aware of these findings. (6) DVT prophylaxis Current Visit: No Status: Acute Assessment and plan: Heparin subcutaneous. - Time Spent With Patient less than 15 minutes - Subjective Interval history: Patient was seen and assessed at about 1050 this morning. She was eating breakfast. She was able to report to me if her left arm was still feeling no. Daughter at bedside answers most questions for patient states that her arm still feels slightly heavy. Patient had CVA in September 2016 and during assessment reestablished that none of the symptoms she presented forward new. She has chronic arm pain and numbness from CVA. Chest pain was in the left upper chest without radiation and states she felt like her arm was "swelled and heavy". She denies shortness of breath, no nausea, no diaphoresis. She is unsure of when the chest pain stopped, but she does not have any at time of evaluation. Onset yesterday morning when she awakened, again she is not sure when she woke up yesterday. Daughter reports that she had diarrhea 2 days ago, she was weak, staggering, off balance. Daughter also reports that patient has 2 maculopapular areas to right forearm. Patient reports that they itch. There is no drainage, bleeding, redness. These are most likely some form of insect bite. - Constitutional Vitals: Temp Pulse Resp BP Pulse Ox 98 F 65 14 99/65 93 01/29/17 15:28 01/29/17 15:28 01/29/17 15:28 01/29/17 15:28 01/29/17 15:28 General appearance: Present: cooperative, A&O X 3, morbidly obese, pleasant, no acute distress, answers questions appropriately - Head Head exam: Present: normal inspection - Eye Eye exam: Present: EOMI, normal appearance, conjuntiva pink - ENT ENT exam: Present: mucous membranes moist, normal exam, normal external ear exam - Respiratory Respiratory exam: Present: CTAB. Absent: chest wall tenderness, decreased breath sounds, rales, respiratory distress, rhonchi, stridor, wheezes - Cardiovascular Cardiovascular exam: Present: JVD, +S1, +S2. Absent: diastolic murmur, systolic murmur - GI/Abdominal GI/Abdominal exam: Present: distended, normal bowel sounds, soft. Absent: hepatomegaly, tenderness - Extremities Exam Extremities exam: Present: pedal edema, tenderness. Absent: warm, radial pulses palpable and symetrical - Neurological Exam Neurological exam: Present: alert, oriented X3, no focal deficits, strengths equal and symetr throughout. Absent: facial droop, speech deficit Internal Medicine: Result - Labs CBC & Chem 7: 01/29/17 00:30 01/29/17 00:30 Labs: Short CBC 01/29/17 Range/Units 00:30 WBC 7.5 (4.3-11.1) K/mcL Hgb 12.6 (11.5-15.4) g/dL Hct 39.0 (35.3-44.9) % Plt Count 229 (140-400) K/mcL Neutrophils # 2.9 (1.6-8.9) K/mcL BMP 01/29/17 00:30 Sodium 138 Potassium 4.4 Chloride 103 Carbon Dioxide 28 BUN 17 Creatinine 0.96 Glucose 85 Calcium 9.8 Cardiac Enzymes 01/28/17 01/29/17 Range/Units 18:02 00:30 Troponin I 0.00 0.00 (0-0.03) ng/mL Urine 01/28/17 Range/Units 15:55 Urine Color Yellow (Yellow) Urine Clarity Clear (Clear) Urine pH 7.0 (5.0-8.0) pH Units Ur Specific [place] 1.007 L (1.010-1.025) Urine Protein Negative (Neg-Trace) mg/dL Urine Glucose (UA) Normal (Normal) mg/dL Consult Discharge Plan - Plan Referrals: Marielos Pruett DO [Primary Care Provider] -
[2017-01-30] MEDS: Acetaminophen 325 MG TABLET PO PRN (00:08)
[2017-01-30] MEDS: *HR* Heparin 5,000 UNIT/ML VIAL SQ SCH (06:05)
--- NOTE | 2017-01-30 09:42 | Nuclear Medicine Stress Report ---
Regadenoson Nuclear 2 day Name: Betsy Christian Date of Study: 01/29/2017 Date: 1945 Ht: 61.0 in Medical Record#: [id number] Age: 71 Wt: 235.0 lb Gender: Female Order #: [id number] Location: [facility] Room: [facility] Supervising Provider: Rosalia Herron CNP Reading Physician: Radha Lr DO Ordering Physician: Cuca Smith CNP Primary Care Physician: Marielos Pruett DO Stress Technologist: Ricardo Rahman, METAL PRECISION MACHINE ASSEMBLER, CCT Well Drill Operator Rotary Drill: Sunitha Baeza Indications: Chest Pain Impression: Perfusion imaging was negative for ischemia or infarct. Pharmacologic ECG was negative for ischemia at the level of heart rate achieved. Gated EF = >70%. History: Hypertension Diabetes Hypercholesteremia Stress Test Summary: Stress Test Type: Pharmacologic Regadenoson 0.4mg/5ml given IV Baseline Information: Initial Heart Rate: 65 Blood Pressure: 114/80 Stress Information: Stress Time: 4 min 00 sec Test Terminated Due to (primary): Completed Protocol Maximum Blood Pressure: 124/70 Maximum Heart Rate: 80 Percent Maximum Heart Rate Achieved: 54 Double Product: 9920 METS Reached: 1 Symptoms: Shortness of breath Nuclear Summary: SPECT myocardial perfusion imaging using Tc99m Sestamibi given intravenously was performed at rest and following cardiac stress testing. The resting images were obtained following initial dose of 31.6 mCi. Following stress an additional dose of 34.0 mCi was given at peak exercise or 30 seconds post regadenoson infusion. Medication Given: Time Medication Dose Units Route Findings: Stress Note * Resting ECG demonstrated normal sinus rhythm with leftward axis, poor R wave progression. * Pharmacologic stress ECG is negative for ischemia at level of heart rate achieved. * No arrhythmias were noted during stress. * Patient had no chest pain during stress. Hemodynamic responses * Normal hemodynamic responses to pharmacologic stress. Study Quality * Study quality was fair. Gated EF > 70% * Gated EF > 70%. Left Ventricle * The left ventricle is not dilated. NORMALS * Normal wall motion. * Normal segmental perfusion in stress. * Normal Segmental Perfusion in rest. TID * No evidence of transient ischemic dilatation. Lung Uptake * There is no evidence of increase lung uptake. Updated by Radha Lr on 01/30/2017 9:37:36 AM electronically signed on 01/30/2017 9:38:15 AM with status of Final
[2017-01-30] MEDS: Insulin LISPRO 300 UNITS/3 ML VIAL SQ SCH (10:03)
[2017-01-30] MEDS: Aspirin Enteric Coated 81 MG Tablet PO SCH (10:03)
[2017-01-30] MEDS: Pregabalin 75 MG CAPSULE PO SCH (10:04)
[2017-01-30] MEDS: Insulin DETEMIR 100 UNIT/ML X5UNITS SQ SCH (10:08)
[2017-01-30 11:22] VITALS: BP 98/62
--- NOTE | 2017-01-30 11:49 | Discharge Summary ---
Date of Encounter: 01/30/17 Time of Encounter: 09:25 - Discharge Diagnosis (1) Chest pain Priority: Primary Status: Acute Comments: Patient is pain-free today. She has had no pain since arrival to ED. Stress test negative for ischemia or infarct, gated EF greater than 70%. EKG on arrival showed sinus bradycardia with a rate of 59, CA interval 180, QRS duration 90 and QTC 407. There were no ST changes. Troponins were negative. Her lung sounds are clear. There is no wheezing, rhonchi, Rales, stridor, or respiratory distress. Continue lisinopril, atenolol and statin. Chest X-Ray 01/28/17 11:17 IMPRESSION: No acute process. D/ / Micha Kruse MD / Micha Kruse MD Interpreting Provider: Micha Kruse MD Qualifiers: Chest pain type: precordial pain Qualified Code(s): R07.2 - Precordial pain (2) CVA (cerebral vascular accident) Priority: Secondary Status: Chronic Comments: History of CVA in September,. No acute infarct at this time. Continue home medications. Patient has mild chronic left upper extremity deficit; numbness to left upper extremity. No deficit with strength or movement. Head CT 01/28/17 11:17 IMPRESSION: 1. No acute intracranial process identified. 2. Mild diffuse cerebral volume loss. D/ / 01/28/2017 13:25:22 Alfonso Morel MD / benedict Interpreting Provider: Alfonso Morel MD Brain MRI 01/28/17 14:07 IMPRESSION: 1. No acute intracranial abnormality. 2. Remote lacunar infarct in the right thalamus. D/ / Carlito Espino MD / Carlito Espino MD Interpreting Provider: Carlito Espino MD Qualifiers: CVA mechanism: unspecified Qualified Code(s): I63.9 - Cerebral infarction, unspecified (3) Type 2 diabetes mellitus Priority: Secondary Status: Chronic Comments: A1c was 5.4 in Nov, 2016. Continue Accu-Cheks and medications at home. Qualifiers: Diabetes mellitus complication status: with neurologic complications Diabetes mellitus complication detail: with polyneuropathy Diabetes mellitus shelter insulin use: with shelter use Qualified Code(s): E11.42 - Type 2 diabetes mellitus with diabetic polyneuropathy; Z79.4 - FDC (current) use of insulin (4) Hypertension Priority: Secondary Status: Chronic Comments: Chronic. Continue Aldactone, lisinopril at home. Qualifiers: Hypertension type: essential hypertension Qualified Code(s): I10 - Essential (primary) hypertension (5) Left arm numbness Priority: Secondary Status: Chronic Comments: Chronic deficit from CVA in September,. Unchanged currently. Continue home medications. (6) DVT prophylaxis Priority: Secondary Status: Acute Comments: Subcutaneous heparin. (7) Morbid obesity with BMI of 40.0-44.9, adult Priority: Secondary Status: Chronic Comments: Chronic. Lifestyle changes. - Discharge Medications Home Medications: Acetaminophen [Tylenol] 500 mg PO Q6HR PRN 09/30/16 [History] Allopurinol [Zyloprim 300 MG] 300 mg PO DAILY 09/30/16 [History] Aspirin Enteric Coated [Aspirin EC] 81 mg PO DAILY 09/30/16 [History] Atenolol [Tenormin] 12.5 mg PO DAILY 09/30/16 [History] Cranberry Fruit Extract/Vit C [Azo Cranberry Softgel] 1 each PO DAILY 09/30/16 [ History] Cyclobenzaprine HCl 2.5 - 5 mg PO HS PRN 09/30/16 [History] Ergocalciferol (VITAMIN D2) [Vitamin D2] 50,000 unit PO ROLDAN 09/30/16 [History] Fexofenadine HCl [Allergy Relief] 180 mg PO DAILY 09/30/16 [History] Fluticasone Propionate Nasal [Flonase] 1 spray NS DAILY 09/30/16 [History] Insulin NPH, HUMAN [HumuLIN N] 20 unit SQ QAM 09/30/16 [History] Insulin Regular Human [Humulin R] 6 unit SQ QAM 09/30/16 [History] L. Acidophilus/L.bulgaricus [Lactinex Chewable Tablet] 1 tab PO BID 09/30/16 [ History] Levothyroxine [Synthroid] 75 mcg PO 0630 09/30/16 [History] Lisinopril 2.5 mg PO DAILY 09/30/16 [History] Pruden-3 Fatty Acids [Fish Oil] 300 mg PO TID 09/30/16 [History] Potassium Chloride [K-Tab ER] 10 meq PO QPM 09/30/16 [History] Potassium Chloride [Klor-Con 10] 20 meq PO QAM AND QHS 09/30/16 [History] Pregabalin [Lyrica] 150 mg PO BID 09/30/16 [History] Saline Nasal Merriman [Ware Nasal Merriman] 2 spray NS Q4H PRN 09/30/16 [History] Spironolactone [Aldactone] 25 mg PO BID 09/30/16 [History] Venlafaxine [Effexor] 37.5 mg PO DAILY 09/30/16 [History] Pravastatin Sodium [Pravachol] 40 mg PO DAILY #30 tablet 10/02/16 [Rx] Loperamide [Imodium] 2 mg PO Q4HR PRN 01/28/17 [History] Allergies/Adverse Reactions: Allergies sulfacetamide [From Sulfamide] Allergy (Verified 01/28/17 11:11) Confusion atorvastatin [From Lipitor] Adverse Reaction (Verified 01/28/17 11:11) Insomnia Procedures/tests Complete & Pending: Procedures Performed prior 72 hours Category Date Time Status NM chema perf SPECT multi [NM] Routine Exams 01/28/17 14:17 Taken MR head/brain wo con [MR] Stat MRI 01/28/17 14:07 Completed SP pharm nuclear stress Routine Y 01/29/17 07:45 Completed Date of admission: 01/28/17 13:17 Primary care physician: Marielos Pruett DO Consults: 01/28/17 14:12 Consult to Occupational Therapy [CONS] Routine Comment: Evaluate, develop and implement POC Reason for Consult: Possible CVA Consult to Physical Therapy [CONS] Routine Comment: Evaluate, develop and implement POC Reason for Consult: Possible CVA Discharging clinician: Cuca Smith Anticipated date of discharge: 01/30/17 - Patient Status Disposition: Home, Self-Care Condition: Good Functional capacity at discharge: independent ambulation Overall status at discharge: patient is back to baseline - Discharge Instructions Follow Up With: Marielos Pruett DO [Primary Care Provider] - 02/02/17 11:30 am Additional Instructions: Please follow-up with her primary care provider in the next 7-10 days for hospital follow-up visit. Resume your normal home medications. Resume your normal diet. Return to your normal activity level gradually. Return to the emergency department as needed for any other problems or concerns , or if your symptoms return or worsen. - Diet and Activity Activity: resume usual activities as tolerated Diet: diabetic diet, low fat, low cholesterol Hospital course: Ms. Christian is a 71 year old female with past medical history of diabetes, CVA, hyperlipidemia, hypertension. She presented to the emergency department on January 28 with complaints of left upper extremity numbness and tingling and heaviness and left upper chest pain. Left arm numbness increase started 2 days prior to arrival, there was no weakness. Her left chest pain lasted about 2 hours. There was no shortness of breath, nausea, diaphoresis. Prior episode of similar chest pain several days ago. She has been pain-free since arrival to the emergency department. Her daughter answers most questions and yesterday told me that the patient's arm still felt heavy, patient denies today. Denies change in current deficits or any new deficits. Physical exam is unremarkable as documented. Stress test was negative for ischemia or infarct, gated EF is greater than 70%. Chest x-ray was negative for any acute process. Troponins were negative. Her vital signs admitted stable and within normal limits. In relation to the increase in left arm tingling, patient had a head CT and MRI. Head CT showed no acute intracranial process, and mild diffuse cerebral volume loss. The MRI without contrast showed no acute intracranial abnormality and a remote lacunar infarct in the right thalamus. Patient states that she has been up walking her bedroom without dyspnea on exertion or chest pain. She denies any change in her chronic left arm deficit from her CVA. She said his baseline. She denies nausea, vomiting, diaphoresis , diarrhea, chest pain, shortness breath, headache, dizziness. Patient is stable and appropriate for discharge. - Time Spent with Patient Total time spent providing and/or coordinating discharge services: Less than 30 minutes - Constitutional Vitals: Temp Pulse Resp BP Pulse Ox 97.8 F 64 16 98/62 91 01/30/17 10:53 01/30/17 10:53 01/30/17 10:53 01/30/17 10:53 01/30/17 10:53 General appearance: Present: cooperative, A&O X 3, morbidly obese, pleasant, no acute distress, answers questions appropriately - Head Head exam: Present: normal inspection - Eye Eye exam: Present: normal appearance, conjuntiva pink - ENT ENT exam: Present: mucous membranes moist, normal exam, normal external ear exam - Neck Neck exam general surgery: Present: normal inspection. Absent: lymphadenopathy , tenderness - Respiratory Respiratory exam: Present: CTAB. Absent: chest wall tenderness, decreased breath sounds, rales, respiratory distress, rhonchi, stridor, wheezes - Cardiovascular Cardiovascular exam: Present: RRR, +S1, +S2. Absent: diastolic murmur, systolic murmur - GI/Abdominal GI/Abdominal exam: Present: distended, normal bowel sounds, soft. Absent: hepatomegaly, tenderness - Extremities Exam Extremities exam: Present: normal capillary refill, normal inspection, warm, radial pulses palpable and symetrical. Absent: pedal edema, tenderness - Neurological Exam Neurological exam: Present: alert, motor sensory deficit, oriented X3, no focal deficits. Absent: facial droop, speech deficit - Skin Skin exam: Present: dry, intact, warm. Absent: rash
== END 2017-01-30 14:04 | disposition home or self-care (01) ==
LOC: EMEROO 11:00 → 3BNU 11:00
PROVIDERS: ADMIT Internal Medicine; ATTEND Registered Nurse

== ENCOUNTER 2019-06-19 18:10 | Observation (INO) ==
[2019-06-19] MEDS ORDERED: 0.9 % Sodium Chloride 1,000 ML IVC ONE (18:31)
[2019-06-19 18:56] LABS: Basophils % 0.6 %; Eosinophils # 0.1 K/mcL (0.0-0.6); Eosinophils % 0.7 %; Hematocrit 42.6 % (35.3-44.9); Immature Granulocytes % 0.1 % (0-4); Lymphocytes # 2.3 K/mcL (0.6-4.6); Lymphocytes % 33.3 %; Mean Corpuscular HGB Conc 32.9 g/dL (31.6-35.5); Mean Corpuscular Hemoglobin 32.8 pg (28.0-33.3); Mean Corpuscular Volume 99.8 fL (83.0-100.0); Mean Platelet Volume 8.9 fL (9.4-12.4); Monocytes # 0.7 K/mcL (0.0-1.3); Monocytes % 9.4 %; Neutrophils # 3.9 K/mcL (1.6-8.9); Platelet Count 241 K/mcL (140-400); Red Blood Count 4.27 M/mcL (3.82-4.97); Red Cell Distribution Width 13.5 % (11.5-14.5); Segmented Neutrophils % 55.9 %
[2019-06-19 19:21] LABS: Alanine Aminotransferase 15 Units/L (7-52); Albumin 4.3 g/dL (3.5-5.7); Albumin/Globulin Ratio 1.4 (1.1-2.2); Alkaline Phosphatase 50 Units/L (34-104); Amylase 32 Units/L (29-103); Aspartate Amino Transferase 26 Units/L (13-39); BUN/Creatinine Ratio 9 (6-26); Bilirubin,Direct 0.1 mg/dL (0.0-0.2); Bilirubin,Indirect 0.3 mg/dL (0.0-1.0); Bilirubin,Total 0.4 mg/dL (0.3-1.0); Blood Urea Nitrogen 8 mg/dL (8-23); Calcium 9.8 mg/dL (8.6-10.3); Carbon Dioxide 26 mEq/L (23-29); Chloride 96 mEq/L (98-107); Globulin 3.1 g/dL (2.4-3.5); Glucose 122 mg/dL (70-105); Lipase 12 Units/L (11-82); Osmolality,Calculated 274 (280-300); Potassium 3.7 mEq/L (3.5-5.1); Sodium 132 mEq/L (136-145); Total Protein 7.4 g/dL (6.4-8.9); eGFR For African Americans > 60 (> 60); eGFR For Non-African Americans > 60 (> 60)
[2019-06-19 19:22] LABS: Troponin I < 0.03 ng/mL (< 0.04)
[2019-06-19 20:08] LABS: Bilirubin,Urine Negative (Negative); Blood,Urine Negative (Negative); Clarity,Urine Clear (Clear); Color,Urine Yellow (Yellow); Glucose,Urine (UA) Normal (Normal); Ketones,Urine Negative (Negative); Leukocyte Esterase,Urine Trace (Negative); Nitrite,Urine Negative (Negative); Protein,Urine Trace mg/dL (Neg-Trace); Specific Gravity,Urine 1.009 (1.010-1.025); Urobilinogen,Urine Normal (Normal)
[2019-06-19 20:11] LABS: Bacteria,Urine None Seen per hpf (None-Few); Hyaline Casts,Urine None Seen per lpf (None-Few); RBC,Urine 0-3 per hpf (0-3); Squamous Epithelial Cell,Urine Many per lpf (None-Few)
[2019-06-19] MEDS ORDERED: Ondansetron 4 MG/2 ML VIAL ONE (20:34)
[2019-06-19] MEDS: Ondansetron 4 MG/2 ML VIAL IVP ONE ×2 (20:36→20:39)
[2019-06-19] MEDS ORDERED: Naloxone 0.4 MG/ML INJ IVP PRN (22:17)
[2019-06-19] MEDS ORDERED: 0.9 % Sodium Chloride 1,000 ML IVC SCH (22:30)
[2019-06-19] MEDS: Ondansetron 4 MG/2 ML VIAL IVP PRN (22:56)
[2019-06-20 00:25] LABS: Basophils % 0.5 %; Eosinophils % 0.5 %; Hemoglobin 13.5 g/dL (11.5-15.4); Immature Granulocytes % 0.1 % (0-4); Lymphocytes # 2.4 K/mcL (0.6-4.6); Lymphocytes % 31.6 %; Mean Corpuscular HGB Conc 32.9 g/dL (31.6-35.5); Mean Corpuscular Hemoglobin 33.3 pg (28.0-33.3); Mean Corpuscular Volume 101.2 fL (83.0-100.0); Mean Platelet Volume 8.8 fL (9.4-12.4); Monocytes # 0.6 K/mcL (0.0-1.3); Monocytes % 8.4 %; Neutrophils # 4.5 K/mcL (1.6-8.9); Platelet Count 205 K/mcL (140-400); Red Blood Count 4.05 M/mcL (3.82-4.97); Red Cell Distribution Width 13.4 % (11.5-14.5); Segmented Neutrophils % 58.9 %; White Blood Count 7.6 K/mcL (4.3-11.1)
[2019-06-20 00:31] LABS: INR 1.1
[2019-06-20 00:34] LABS: Activated Partial Thrombo Time 35.8 Seconds (26.0-36.0)
[2019-06-20 00:47] LABS: Alanine Aminotransferase 14 Units/L (7-52); Albumin 3.9 g/dL (3.5-5.7); Albumin/Globulin Ratio 1.3 (1.1-2.2); Alkaline Phosphatase 47 Units/L (34-104); Aspartate Amino Transferase 23 Units/L (13-39); BUN/Creatinine Ratio 10 (6-26); Bilirubin,Total 0.4 mg/dL (0.3-1.0); Blood Urea Nitrogen 7 mg/dL (8-23); Calcium 9.3 mg/dL (8.6-10.3); Carbon Dioxide 25 mEq/L (23-29); Chloride 103 mEq/L (98-107); Chol/HDL Ratio 4.9 (0-4.9); Cholesterol 156 mg/dL (< 200); Globulin 2.9 g/dL (2.4-3.5); Glucose 88 mg/dL (70-105); HDL Cholesterol 32 mg/dL (40-59); LDL Cholesterol,Calculated 90 mg/dL (0-99); Osmolality,Calculated 279 (280-300); Potassium 3.6 mEq/L (3.5-5.1); Sodium 136 mEq/L (136-145); Total Protein 6.8 g/dL (6.4-8.9); Triglycerides 171 mg/dL (< 150); eGFR For African Americans > 60 (> 60); eGFR For Non-African Americans > 60 (> 60)
[2019-06-20] MEDS: *HR* Heparin 5,000 UNIT/ML VIAL SQ SCH (06:10)
[2019-06-20] MEDS ORDERED: *HR* Dextrose 50 % in Water (Syg) 50 ML SYRINGE IVP PRN (07:39)
[2019-06-20] MEDS ORDERED: D5% in Water 1,000 ML IVC PRN (07:39)
[2019-06-20] MEDS ORDERED: Dextrose Gel 15 GM/37.5 ML TUBE PO PRN ×2 (07:39)
[2019-06-20] MEDS: Insulin LISPRO 300 UNITS/3 ML VIAL SQ SCH ×4 (08:58→20:56)
[2019-06-20] MEDS ORDERED: Spironolactone 25 MG TABLET PO SCH (09:00)
[2019-06-20] MEDS: Aspirin Enteric Coated 81 MG Tablet PO SCH (09:23)
[2019-06-20] MEDS: Spironolactone 25 MG TABLET PO SCH (09:24)
[2019-06-20] MEDS: 0.9 % Sodium Chloride 1,000 ML IVC SCH (09:24)
[2019-06-20] MEDS: Pravastatin Sodium [Pravachol] 40 MG PO SCH (21:04)
[2019-06-20] MEDS: Ondansetron 4 MG/2 ML VIAL IVP PRN (21:14)
[2019-06-21] MEDS: 0.9 % Sodium Chloride 1,000 ML IVC SCH ×3 (00:32→16:30)
[2019-06-21] MEDS: Insulin LISPRO 300 UNITS/3 ML VIAL SQ SCH ×6 (00:32→20:21)
[2019-06-21] MEDS: *HR* Heparin 5,000 UNIT/ML VIAL SQ SCH ×3 (05:03→20:21)
[2019-06-21] MEDS ORDERED: *HR* FentaNYL (PF) 100 MCG/2 ML VIAL ONE (07:27)
[2019-06-21] MEDS ORDERED: *HR* Midazolam HCl 5 MG/5 ML VIAL IVP ONE ×2 (07:27→07:41)
[2019-06-21] MEDS: Ondansetron 4 MG/2 ML VIAL IVP PRN ×2 (07:38→14:27)
[2019-06-21] MEDS ORDERED: Simethicone 40 MG/0.6 ML MLS IR ONE (07:41)
[2019-06-21] MEDS ORDERED: *HR* FentaNYL (PF) 100 MCG/2 ML VIAL IVP ONE (07:41)
[2019-06-21] MEDS: Aspirin Enteric Coated 81 MG Tablet PO SCH (08:32)
[2019-06-21] MEDS: Spironolactone 25 MG TABLET PO SCH (08:32)
[2019-06-21 16:47] LABS: Estimated Average Glucose 114 mg/dl
[2019-06-21] MEDS: Pantoprazole 40 MG VIAL IVP SCH (16:52)
[2019-06-21] MEDS: Pravastatin Sodium [Pravachol] 40 MG PO SCH (20:21)
[2019-06-21] MEDS: Pregabalin 75 MG CAPSULE PO SCH (20:23)
[2019-06-22] MEDS: *HR* Heparin 5,000 UNIT/ML VIAL SQ SCH ×3 (05:39→20:32)
[2019-06-22] MEDS: 0.9 % Sodium Chloride 1,000 ML IVC SCH ×2 (05:41→20:31)
[2019-06-22] MEDS: Insulin LISPRO 300 UNITS/3 ML VIAL SQ SCH ×4 (08:43→17:18)
[2019-06-22] MEDS: Aspirin Enteric Coated 81 MG Tablet PO SCH (08:46)
[2019-06-22] MEDS: Spironolactone 25 MG TABLET PO SCH (08:46)
[2019-06-22] MEDS: Pregabalin 75 MG CAPSULE PO SCH ×2 (08:47→20:32)
[2019-06-22] MEDS: Pantoprazole 40 MG VIAL IVP SCH (08:51)
[2019-06-23] MEDS: *HR* Heparin 5,000 UNIT/ML VIAL SQ SCH ×2 (05:19→12:04)
[2019-06-23 05:32] LABS: Hematocrit 35.7 % (35.3-44.9); Mean Corpuscular HGB Conc 32.2 g/dL (31.6-35.5); Mean Corpuscular Hemoglobin 32.8 pg (28.0-33.3); Mean Corpuscular Volume 101.7 fL (83.0-100.0); Mean Platelet Volume 9.4 fL (9.4-12.4); Platelet Count 186 K/mcL (140-400); Red Blood Count 3.51 M/mcL (3.82-4.97); Red Cell Distribution Width 13.7 % (11.5-14.5); White Blood Count 5.1 K/mcL (4.3-11.1)
[2019-06-23 05:35] LABS: Hemoglobin 11.5 g/dL (11.5-15.4)
[2019-06-23 06:03] LABS: Blood Urea Nitrogen 7 mg/dL (8-23); Calcium 8.7 mg/dL (8.6-10.3); Chloride 107 mEq/L (98-107); Glucose 89 mg/dL (70-105); Osmolality,Calculated 291 (280-300); Potassium 3.6 mEq/L (3.5-5.1); Sodium 142 mEq/L (136-145)
[2019-06-23 06:29] LABS: BUN/Creatinine Ratio 9 (6-26); Carbon Dioxide 28 mEq/L (23-29); eGFR For African Americans > 60 (> 60); eGFR For Non-African Americans > 60 (> 60)
[2019-06-23] MEDS: Insulin LISPRO 300 UNITS/3 ML VIAL SQ SCH ×2 (07:39→14:16)
[2019-06-23] MEDS: Spironolactone 25 MG TABLET PO SCH (07:39)
[2019-06-23] MEDS: Aspirin Enteric Coated 81 MG Tablet PO SCH (07:39)
[2019-06-23] MEDS: Pantoprazole 40 MG VIAL IVP SCH (07:40)
[2019-06-23] MEDS: Pregabalin 75 MG CAPSULE PO SCH (07:40)
[2019-06-23 15:18] VITALS: BP 121/72
== END 2019-06-23 15:44 ==
LOC: EMEROOARM 18:10 → 3BNU 18:10
PROVIDERS: ADMIT Internal Medicine; ATTEND Internal Medicine

== ENCOUNTER 2019-12-28 16:20 | Observation (INO) ==
[2019-12-28] MEDS ORDERED: Tdap (Boostrix) Vaccine 0.5 ML SYRINGE IM ONE (16:35)
[2019-12-28] MEDS ORDERED: Isovue-370 500 ML BOTTLE IVP ONE (16:36)
[2019-12-28 17:11] LABS: Basophils # 0.1 K/mcL (0.0-0.2); Basophils % 0.8 %; Eosinophils # 0.1 K/mcL (0.0-0.6); Eosinophils % 1.5 %; Hematocrit 44.3 % (35.3-44.9); Hemoglobin 14.5 g/dL (11.5-15.4); Immature Granulocytes % 0.3 % (0-4); Lymphocytes % 24.6 %; Mean Corpuscular HGB Conc 32.7 g/dL (31.6-35.5); Mean Corpuscular Hemoglobin 31.1 pg (28.0-33.3); Mean Corpuscular Volume 95.1 fL (83.0-100.0); Mean Platelet Volume 9.2 fL (9.4-12.4); Monocytes # 0.7 K/mcL (0.0-1.3); Monocytes % 8.6 %; Neutrophils # 5.1 K/mcL (1.6-8.9); Platelet Count 220 K/mcL (140-400); Red Blood Count 4.66 M/mcL (3.82-4.97); Segmented Neutrophils % 64.2 %
[2019-12-28 17:14] LABS: INR 1.1; Prothrombin Time 12.2 Seconds (9.4-12.1)
[2019-12-28 17:17] LABS: Activated Partial Thrombo Time 37.6 Seconds (26.0-36.0)
[2019-12-28 17:33] LABS: Alanine Aminotransferase 18 Units/L (7-52); Albumin 4.3 g/dL (3.5-5.7); Albumin/Globulin Ratio 1.4 (1.1-2.2); Alkaline Phosphatase 63 Units/L (34-104); Aspartate Amino Transferase 30 Units/L (13-39); BUN/Creatinine Ratio 21 (6-26); Bilirubin,Total 0.4 mg/dL (0.3-1.0); Blood Urea Nitrogen 13 mg/dL (8-23); Calcium 9.9 mg/dL (8.6-10.3); Carbon Dioxide 26 mEq/L (23-29); Chloride 104 mEq/L (98-107); Globulin 3.1 g/dL (2.4-3.5); Glucose 105 mg/dL (70-105); Osmolality,Calculated 290 (280-300); Potassium 3.5 mEq/L (3.5-5.1); Sodium 140 mEq/L (136-145); Total Protein 7.4 g/dL (6.4-8.9); Troponin I < 0.03 ng/mL (< 0.04); eGFR For African Americans > 60 (> 60); eGFR For Non-African Americans > 60 (> 60)
[2019-12-28 18:15] LABS: Bilirubin,Urine Negative (Negative); Blood,Urine Negative (Negative); Clarity,Urine Clear (Clear); Color,Urine Colorless (Yellow); Glucose,Urine (UA) Normal (Normal); Ketones,Urine Negative (Negative); Leukocyte Esterase,Urine Negative (Negative); Nitrite,Urine Negative (Negative); PH,Urine 6.5 pH Units (5.0-8.0); Protein,Urine Negative (Neg-Trace); Specific Gravity,Urine 1.006 (1.010-1.025); Urobilinogen,Urine Normal (Normal)
[2019-12-28] MEDS ORDERED: Morphine Sulfate 2 MG/ML SYRINGE IVP PRN (19:14)
[2019-12-28] MEDS ORDERED: Naloxone 0.4 MG/ML INJ IVP PRN (20:34)
[2019-12-29] MEDS: Pregabalin 75 MG CAPSULE PO SCH ×3 (00:10→21:15)
[2019-12-29] MEDS: Spironolactone 25 MG TABLET PO SCH ×3 (00:10→21:15)
[2019-12-29] MEDS: (Pravastatin Sodium [Pravachol] 40 MG) PO SCH ×2 (02:39→21:15)
[2019-12-29] MEDS: *HR* Heparin 5,000 UNIT/ML VIAL SQ SCH ×2 (05:50→18:07)
[2019-12-29 06:12] LABS: Hematocrit 42.5 % (35.3-44.9); Hemoglobin 13.6 g/dL (11.5-15.4); Mean Corpuscular Hemoglobin 30.6 pg (28.0-33.3); Mean Corpuscular Volume 95.7 fL (83.0-100.0); Mean Platelet Volume 9.2 fL (9.4-12.4); Platelet Count 207 K/mcL (140-400); Red Blood Count 4.44 M/mcL (3.82-4.97); Red Cell Distribution Width 14.1 % (11.5-14.5); White Blood Count 6.5 K/mcL (4.3-11.1)
[2019-12-29 06:34] LABS: BUN/Creatinine Ratio 19 (6-26); Blood Urea Nitrogen 13 mg/dL (8-23); Calcium 9.8 mg/dL (8.6-10.3); Carbon Dioxide 25 mEq/L (23-29); Chloride 105 mEq/L (98-107); Glucose 119 mg/dL (70-105); Osmolality,Calculated 291 (280-300); Potassium 3.4 mEq/L (3.5-5.1); Sodium 140 mEq/L (136-145); eGFR For African Americans > 60 (> 60); eGFR For Non-African Americans > 60 (> 60)
[2019-12-29] MEDS: Aspirin Enteric Coated 81 MG Tablet PO SCH (10:03)
[2019-12-29] MEDS: lisinopriL 5 MG TABLET PO SCH (10:03)
[2019-12-29] MEDS: Acetaminophen 325 MG TABLET PO PRN (11:53)
[2019-12-29] MEDS ORDERED: Dextrose Gel 15 GM/37.5 ML TUBE PO PRN ×2 (12:26)
[2019-12-29] MEDS ORDERED: D5% in Water 1,000 ML IVC PRN (12:26)
[2019-12-29] MEDS ORDERED: *HR* Dextrose 50 % in Water (Vial) 50 ML VIAL IVP PRN (12:26)
[2019-12-29] MEDS: Insulin LISPRO 300 UNITS/3 ML VIAL SQ SCH ×2 (18:00→21:16)
[2019-12-30 02:36] LABS: BUN/Creatinine Ratio 19 (6-26); Blood Urea Nitrogen 10 mg/dL (8-23); Calcium 9.6 mg/dL (8.6-10.3); Carbon Dioxide 27 mEq/L (23-29); Chloride 104 mEq/L (98-107); Glucose 106 mg/dL (70-105); Osmolality,Calculated 287 (280-300); Potassium 3.9 mEq/L (3.5-5.1); Sodium 139 mEq/L (136-145); eGFR For African Americans > 60 (> 60); eGFR For Non-African Americans > 60 (> 60)
[2019-12-30] MEDS: *HR* Heparin 5,000 UNIT/ML VIAL SQ SCH ×2 (04:45→17:16)
[2019-12-30] MEDS: Acetaminophen 325 MG TABLET PO PRN ×2 (04:45→14:55)
[2019-12-30] MEDS: Insulin LISPRO 300 UNITS/3 ML VIAL SQ SCH ×4 (07:26→20:20)
[2019-12-30] MEDS: Aspirin Enteric Coated 81 MG Tablet PO SCH (07:31)
[2019-12-30] MEDS: lisinopriL 5 MG TABLET PO SCH (07:32)
[2019-12-30] MEDS: Spironolactone 25 MG TABLET PO SCH ×2 (07:32→20:21)
[2019-12-30] MEDS: Pregabalin 75 MG CAPSULE PO SCH ×2 (07:32→20:21)
[2019-12-30] MEDS: (Pravastatin Sodium [Pravachol] 40 MG) PO SCH (20:21)
[2019-12-31] MEDS: *HR* Heparin 5,000 UNIT/ML VIAL SQ SCH ×2 (06:10→18:06)
[2019-12-31] MEDS: Aspirin Enteric Coated 81 MG Tablet PO SCH (08:59)
[2019-12-31] MEDS: lisinopriL 5 MG TABLET PO SCH (08:59)
[2019-12-31] MEDS: Spironolactone 25 MG TABLET PO SCH ×2 (09:00→20:18)
[2019-12-31] MEDS: Pregabalin 75 MG CAPSULE PO SCH ×2 (09:01→20:18)
[2019-12-31] MEDS: Insulin LISPRO 300 UNITS/3 ML VIAL SQ SCH ×4 (09:13→20:56)
[2019-12-31] MEDS: (Pravastatin Sodium [Pravachol] 40 MG) PO SCH (20:18)
[2020-01-01] MEDS: Acetaminophen 325 MG TABLET PO PRN (05:35)
[2020-01-01] MEDS: *HR* Heparin 5,000 UNIT/ML VIAL SQ SCH ×2 (05:35→17:53)
[2020-01-01] MEDS: Pregabalin 75 MG CAPSULE PO SCH ×2 (07:51→22:10)
[2020-01-01] MEDS: lisinopriL 5 MG TABLET PO SCH (07:51)
[2020-01-01] MEDS: Aspirin Enteric Coated 81 MG Tablet PO SCH (07:52)
[2020-01-01] MEDS: Spironolactone 25 MG TABLET PO SCH ×2 (07:52→22:10)
[2020-01-01] MEDS: Insulin LISPRO 300 UNITS/3 ML VIAL SQ SCH ×4 (08:05→18:01)
[2020-01-01] MEDS ORDERED: Ondansetron 4 MG/2 ML VIAL IVP PRN (15:47)
[2020-01-01] MEDS ORDERED: *HR* Promethazine 25 MG/ML VIAL IVP PRN (18:14)
[2020-01-01] MEDS: (Pravastatin Sodium [Pravachol] 40 MG) PO SCH (22:10)
[2020-01-02] MEDS: *HR* Heparin 5,000 UNIT/ML VIAL SQ SCH (05:42)
[2020-01-02 06:09] LABS: Basophils # 0.1 K/mcL (0.0-0.2); Basophils % 0.8 %; Eosinophils # 0.1 K/mcL (0.0-0.6); Eosinophils % 1.8 %; Hematocrit 46.4 % (35.3-44.9); Hemoglobin 14.5 g/dL (11.5-15.4); Immature Granulocytes % 0.4 % (0-4); Lymphocytes # 2.5 K/mcL (0.6-4.6); Lymphocytes % 31.4 %; Mean Corpuscular HGB Conc 31.3 g/dL (31.6-35.5); Mean Corpuscular Volume 95.9 fL (83.0-100.0); Mean Platelet Volume 9.7 fL (9.4-12.4); Monocytes # 0.9 K/mcL (0.0-1.3); Monocytes % 10.7 %; Neutrophils # 4.4 K/mcL (1.6-8.9); Platelet Count 257 K/mcL (140-400); Red Blood Count 4.84 M/mcL (3.82-4.97); Red Cell Distribution Width 14.1 % (11.5-14.5); Segmented Neutrophils % 54.9 %
[2020-01-02 06:30] LABS: BUN/Creatinine Ratio 26 (6-26); Blood Urea Nitrogen 18 mg/dL (8-23); Calcium 10.2 mg/dL (8.6-10.3); Carbon Dioxide 27 mEq/L (23-29); Chloride 98 mEq/L (98-107); Glucose 109 mg/dL (70-105); Osmolality,Calculated 280 (280-300); Potassium 4.2 mEq/L (3.5-5.1); Sodium 134 mEq/L (136-145); eGFR For African Americans > 60 (> 60); eGFR For Non-African Americans > 60 (> 60)
[2020-01-02] MEDS: Insulin LISPRO 300 UNITS/3 ML VIAL SQ SCH ×2 (07:41→11:42)
[2020-01-02] MEDS: lisinopriL 5 MG TABLET PO SCH (08:42)
[2020-01-02] MEDS: Spironolactone 25 MG TABLET PO SCH (08:42)
[2020-01-02] MEDS: Aspirin Enteric Coated 81 MG Tablet PO SCH (08:43)
[2020-01-02] MEDS: Pregabalin 75 MG CAPSULE PO SCH (08:43)
[2020-01-02 15:33] VITALS: BP 101/62
== END 2020-01-02 17:00 ==
LOC: 3NENU 16:20 → EMEROOARM 16:20 → SUATTDRO 20:22 → 3NENU 21:31
PROVIDERS: ADMIT Student in an Organized Health Care Education/Training Program; ATTEND Family Medicine

== ENCOUNTER 2021-04-13 03:41 | Inpatient (IN) ==
[2021-04-13] MEDS ORDERED: *HR* Heparin 5,000 UNIT/ML VIAL IVP ONE (03:52)
[2021-04-13 03:58] LABS: Basophils % 0.2 %; Hematocrit 51.6 % (35.3-44.9); Hemoglobin 16.8 g/dL (11.5-15.4); Immature Granulocytes % 0.4 % (0-4); Lymphocytes # 0.8 K/mcL (0.6-4.6); Lymphocytes % 6.3 %; Mean Corpuscular HGB Conc 32.6 g/dL (31.6-35.5); Mean Corpuscular Hemoglobin 30.7 pg (28.0-33.3); Mean Corpuscular Volume 94.2 fL (83.0-100.0); Mean Platelet Volume 8.5 fL (9.4-12.4); Monocytes # 0.2 K/mcL (0.0-1.3); Monocytes % 1.6 %; Platelet Count 324 K/mcL (140-400); Red Blood Count 5.48 M/mcL (3.82-4.97); Red Cell Distribution Width 13.7 % (11.5-14.5); Segmented Neutrophils % 91.5 %; White Blood Count 13.1 K/mcL (4.3-11.1)
[2021-04-13 04:06] LABS: INR 1.1; Prothrombin Time 11.9 Seconds (9.4-12.1)
[2021-04-13] MEDS ORDERED: ISOVUE-370 200 ML INFUS..BTL ONE ×2 (04:07→04:31)
[2021-04-13] MEDS ORDERED: Heparin 1,000 UNITS/500 mL 500 ML ONE (04:07)
[2021-04-13] MEDS ORDERED: *HR* Heparin 10,000 UNIT/10 ML VIAL ONE (04:07)
[2021-04-13] MEDS ORDERED: Nitroglycerin 1,000 MCG/5 ML VIAL IV ONE (04:07)
[2021-04-13] MEDS ORDERED: 0.9 % Sodium Chloride 1,000 ML ONE (04:07)
[2021-04-13 04:08] LABS: Activated Partial Thrombo Time 36.9 Seconds (26.0-36.0)
[2021-04-13] MEDS ORDERED: *HR* Midazolam HCl 2 MG/2 ML VIAL ONE (04:10)
[2021-04-13] MEDS ORDERED: *HR* FentaNYL (PF) 100 MCG/2 ML VIAL ONE (04:10)
[2021-04-13 04:55] LABS: BUN/Creatinine Ratio 43 (6-26); Blood Urea Nitrogen 20 mg/dL (8-23); Calcium 10.3 mg/dL (8.6-10.3); Carbon Dioxide 34 mEq/L (23-29); Chloride 93 mEq/L (98-107); Glucose 162 mg/dL (70-105); Osmolality,Calculated 286 (280-300); Potassium 4.2 mEq/L (3.5-5.1); Sodium 135 mEq/L (136-145); eGFR For African Americans > 60 (> 60); eGFR For Non-African Americans > 60 (> 60)
[2021-04-13] MEDS ORDERED: Ondansetron 4 MG/2 ML VIAL IVP PRN (04:57)
[2021-04-13] MEDS ORDERED: Perflutren Lipid Microsphere 1.3 ML in 0.9 % Sodium Chloride 8.7 ML IVP PRN (04:57)
[2021-04-13 05:13] LABS: Troponin I 1.82 ng/mL (< 0.04)
[2021-04-13 10:18] LABS: Adenovirus Not Detected (Not Detect); Bordetella Pertussis Not Detected (Not Detect); Chlamydophila pneumoniae Not Detected (Not Detect); Coronavirus 229E Not Detected (Not Detect); Coronavirus HKU1 Not Detected (Not Detect); Coronavirus NL63 Not Detected (Not Detect); Coronavirus OC43 Not Detected (Not Detect); Human Metapneumovirus Not Detected (Not Detect); Human Rhinovirus/Enterovirus Not Detected (Not Detect); Influenza A Subtype 2009 H1 Not Detected (Not Detect); Influenza B Not Detected (Not Detect); Mycoplasma pneumoniae Not Detected (Not Detect); Parainfluenza Virus 1 Not Detected (Not Detect); Parainfluenza Virus 2 Not Detected (Not Detect); Parainfluenza Virus 3 Not Detected (Not Detect); Parainfluenza Virus 4 Not Detected (Not Detect); Respiratory Syncytial Virus Not Detected (Not Detect); SARS-CoV-2 Not Detected (Not Detect)
[2021-04-13] MEDS: Aspirin 81 MG TAB.CHEW PO SCH (11:19)
[2021-04-13] MEDS ORDERED: Isovue-370 500 ML BOTTLE IVP ONE ×2 (11:59→14:16)
[2021-04-13] MEDS ORDERED: *HR* Enoxaparin 30 MG/0.3 ML SYRINGE SQ SCH (12:00)
[2021-04-13] MEDS ORDERED: Ipratropium/Albuterol Neb 3 ML IH PRN (14:18)
[2021-04-13 17:12] LABS: Albumin/Globulin Ratio 1.3 (1.1-2.2); Bilirubin,Direct 0.1 mg/dL (0.0-0.2); Bilirubin,Indirect 0.2 mg/dL (0.0-1.0); Bilirubin,Total 0.3 mg/dL (0.3-1.0)
[2021-04-13 17:25] LABS: Thyroid Stimulating Hormone 3.652 mcIU/mL (0.340-5.600)
[2021-04-13] MEDS: Acetaminophen IV 1,000 MG/100 ML BAG IVPB PRN (18:08)
[2021-04-13] MEDS ORDERED: 0.9 % Sodium Chloride 500 ML IVC ONE (19:05)
[2021-04-13 21:40] LABS: Bilirubin,Urine Negative (Negative); Blood,Urine Negative (Negative); Clarity,Urine Clear (Clear); Color,Urine Light-Yellow (Yellow); Glucose,Urine (UA) Normal (Normal); Ketones,Urine Negative (Negative); Leukocyte Esterase,Urine Negative (Negative); Nitrite,Urine Negative (Negative); Protein,Urine Trace mg/dL (Neg-Trace); Specific Gravity,Urine > 1.030 (1.010-1.025); Urobilinogen,Urine Normal (Normal)
[2021-04-14 01:45] LABS: Basophils % 0.2 %; Hematocrit 49.5 % (35.3-44.9); Hemoglobin 15.5 g/dL (11.5-15.4); Immature Granulocytes % 0.5 % (0-4); Lymphocytes # 2.5 K/mcL (0.6-4.6); Lymphocytes % 15.3 %; Mean Corpuscular HGB Conc 31.3 g/dL (31.6-35.5); Mean Corpuscular Hemoglobin 29.9 pg (28.0-33.3); Mean Corpuscular Volume 95.4 fL (83.0-100.0); Mean Platelet Volume 8.7 fL (9.4-12.4); Monocytes # 1.6 K/mcL (0.0-1.3); Platelet Count 293 K/mcL (140-400); Red Blood Count 5.19 M/mcL (3.82-4.97); Red Cell Distribution Width 13.9 % (11.5-14.5); White Blood Count 16.2 K/mcL (4.3-11.1)
[2021-04-14 02:01] LABS: BUN/Creatinine Ratio 64 (6-26); Blood Urea Nitrogen 21 mg/dL (8-23); Calcium 10.2 mg/dL (8.6-10.3); Carbon Dioxide 32 mEq/L (23-29); Chloride 99 mEq/L (98-107); Glucose 125 mg/dL (70-105); Osmolality,Calculated 288 (280-300); Potassium 3.8 mEq/L (3.5-5.1); Sodium 137 mEq/L (136-145); eGFR For African Americans > 60 (> 60); eGFR For Non-African Americans > 60 (> 60)
[2021-04-14] MEDS: Acetaminophen IV 1,000 MG/100 ML BAG IVPB PRN ×2 (06:41→21:35)
[2021-04-14] MEDS: Aspirin 81 MG TAB.CHEW PO SCH (09:17)
[2021-04-14] MEDS: *HR* Enoxaparin 40 MG/0.4 ML SYRINGE SQ SCH (14:55)
[2021-04-14] MEDS: 0.9 % Sodium Chloride 1,000 ML IVC SCH (14:56)
[2021-04-14 16:48] LABS: ABG Base Excess 5 mEq/L (-2 to 3); ABG HCO3 34 mEq/L (21-27); ABG Oxygen Saturation 95 % (95-98); ABG PCO2 64 mmHg (35-45); ABG PH 7.33 pH Units (7.32-7.45); ABG PO2 82 mmHg (85-104); ABG TCO2 36 mEq/L (20-26)
[2021-04-15] MEDS ORDERED: *HR* LORazepam 2 MG/ML VIAL IVP STA (04:07)
[2021-04-15] MEDS: 0.9 % Sodium Chloride 1,000 ML IVC SCH (06:15)
[2021-04-15 08:24] LABS: ABG Base Excess 6 mEq/L (-2 to 3); ABG HCO3 37 mEq/L (21-27); ABG Oxygen Saturation 100 % (95-98); ABG PCO2 80 mmHg (35-45); ABG PH 7.27 pH Units (7.32-7.45); ABG PO2 236 mmHg (85-104); ABG TCO2 40 mEq/L (20-26)
[2021-04-15 08:31] LABS: Basophils # 0.1 K/mcL (0.0-0.2); Basophils % 0.5 %; Eosinophils % 0.3 %; Hematocrit 45.1 % (35.3-44.9); Hemoglobin 14.2 g/dL (11.5-15.4); Immature Granulocytes % 0.3 % (0-4); Lymphocytes # 2.5 K/mcL (0.6-4.6); Lymphocytes % 24.8 %; Mean Corpuscular HGB Conc 31.5 g/dL (31.6-35.5); Mean Corpuscular Hemoglobin 30.5 pg (28.0-33.3); Mean Corpuscular Volume 96.8 fL (83.0-100.0); Mean Platelet Volume 8.8 fL (9.4-12.4); Monocytes # 1.1 K/mcL (0.0-1.3); Monocytes % 10.7 %; Neutrophils # 6.4 K/mcL (1.6-8.9); Platelet Count 255 K/mcL (140-400); Red Blood Count 4.66 M/mcL (3.82-4.97); Red Cell Distribution Width 14.1 % (11.5-14.5); Segmented Neutrophils % 63.4 %; White Blood Count 10.1 K/mcL (4.3-11.1)
[2021-04-15 08:52] LABS: BUN/Creatinine Ratio 69 (6-26); Blood Urea Nitrogen 18 mg/dL (8-23); Calcium 9.4 mg/dL (8.6-10.3); Carbon Dioxide 34 mEq/L (23-29); Chloride 106 mEq/L (98-107); Glucose 90 mg/dL (70-105); Magnesium 1.6 mg/dL (1.6-2.6); Osmolality,Calculated 289 (280-300); Potassium 3.6 mEq/L (3.5-5.1); Sodium 139 mEq/L (136-145); eGFR For African Americans > 60 (> 60); eGFR For Non-African Americans > 60 (> 60)
[2021-04-15] MEDS ORDERED: Metoprolol XL (24 HR) Succ 25 MG TAB.ER.24H PO SCH (09:00)
[2021-04-15] MEDS: Famotidine 20 MG TABLET PO SCH (10:50)
[2021-04-15] MEDS: Aspirin Enteric Coated 81 MG Tablet PO SCH (10:51)
[2021-04-15] MEDS: Metoprolol XL (24 HR) Succ 25 MG TAB.ER.24H PO SCH (10:51)
[2021-04-15 10:52] LABS: ABG Base Excess 6 mEq/L (-2 to 3); ABG HCO3 34 mEq/L (21-27); ABG Oxygen Saturation 96 % (95-98); ABG PCO2 64 mmHg (35-45); ABG PH 7.34 pH Units (7.32-7.45); ABG PO2 88 mmHg (85-104); ABG TCO2 36 mEq/L (20-26)
[2021-04-15] MEDS: Furosemide 20 MG/2 ML VIAL IVP SCH ×2 (10:52→21:50)
[2021-04-15] MEDS: Ampicillin/Sulbactam 1,500 MG in 0.9 % Sodium Chloride Mini Bag 100 ML IVPB SCH ×3 (10:53→18:08)
[2021-04-15] MEDS: Acetaminophen IV 1,000 MG/100 ML BAG IVPB PRN (13:23)
[2021-04-15] MEDS: *HR* Enoxaparin 40 MG/0.4 ML SYRINGE SQ SCH (13:56)
[2021-04-15] MEDS: Mirtazapine 15 MG TABLET PO SCH (22:02)
[2021-04-15] MEDS: Melatonin 3 MG TABLET PO SCH (22:02)
[2021-04-16] MEDS: Ampicillin/Sulbactam 1,500 MG in 0.9 % Sodium Chloride Mini Bag 100 ML IVPB SCH ×5 (00:23→23:29)
[2021-04-16] MEDS ORDERED: *HR* Labetalol 20 MG/4 ML SYRINGE IVP ONE (04:05)
[2021-04-16] MEDS: Aspirin Enteric Coated 81 MG Tablet PO SCH (08:09)
[2021-04-16] MEDS: Metoprolol XL (24 HR) Succ 25 MG TAB.ER.24H PO SCH (08:09)
[2021-04-16] MEDS: lisinopriL 5 MG TABLET PO SCH (08:09)
[2021-04-16] MEDS: Famotidine 20 MG TABLET PO SCH (08:09)
[2021-04-16] MEDS: Furosemide 20 MG/2 ML VIAL IVP SCH ×2 (08:09→20:41)
[2021-04-16 08:19] LABS: Basophils # 0.1 K/mcL (0.0-0.2); Basophils % 0.5 %; Eosinophils # 0.1 K/mcL (0.0-0.6); Eosinophils % 0.4 %; Hematocrit 51.7 % (35.3-44.9); Hemoglobin 15.9 g/dL (11.5-15.4); Immature Granulocytes % 0.4 % (0-4); Lymphocytes # 2.9 K/mcL (0.6-4.6); Lymphocytes % 21.8 %; Mean Corpuscular HGB Conc 30.8 g/dL (31.6-35.5); Mean Corpuscular Hemoglobin 30.1 pg (28.0-33.3); Mean Corpuscular Volume 97.9 fL (83.0-100.0); Mean Platelet Volume 8.8 fL (9.4-12.4); Monocytes # 1.1 K/mcL (0.0-1.3); Monocytes % 8.2 %; Neutrophils # 9.1 K/mcL (1.6-8.9); Platelet Count 333 K/mcL (140-400); Red Blood Count 5.28 M/mcL (3.82-4.97); Red Cell Distribution Width 13.9 % (11.5-14.5); Segmented Neutrophils % 68.7 %; White Blood Count 13.2 K/mcL (4.3-11.1)
[2021-04-16 09:08] LABS: ABG Base Excess 7 mEq/L (-2 to 3); ABG HCO3 37 mEq/L (21-27); ABG Oxygen Saturation 98 % (95-98); ABG PCO2 77 mmHg (35-45); ABG PH 7.29 pH Units (7.32-7.45); ABG PO2 113 mmHg (85-104); ABG TCO2 40 mEq/L (20-26)
[2021-04-16 09:35] LABS: BUN/Creatinine Ratio 43 (6-26); Blood Urea Nitrogen 12 mg/dL (8-23); Calcium 9.7 mg/dL (8.6-10.3); Carbon Dioxide 32 mEq/L (23-29); Chloride 98 mEq/L (98-107); Glucose 145 mg/dL (70-105); Osmolality,Calculated 300 (280-300); Potassium 3.7 mEq/L (3.5-5.1); Sodium 144 mEq/L (136-145); eGFR For African Americans > 60 (> 60); eGFR For Non-African Americans > 60 (> 60)
[2021-04-16] MEDS: MethylPREDNISolone 40 MG/ML VIAL IVP SCH ×3 (11:11→23:29)
[2021-04-16 12:03] LABS: ABG Base Excess 8 mEq/L (-2 to 3); ABG HCO3 36 mEq/L (21-27); ABG Oxygen Saturation 94 % (95-98); ABG PCO2 59 mmHg (35-45); ABG PH 7.39 pH Units (7.32-7.45); ABG PO2 72 mmHg (85-104); ABG TCO2 38 mEq/L (20-26); Blood Gas Pressure Support 14 cm H2O
[2021-04-16] MEDS ORDERED: *HR* Enoxaparin 40 MG/0.4 ML SYRINGE SQ SCH ×2 (14:00→16:15)
[2021-04-16] MEDS: *HR* Enoxaparin 40 MG/0.4 ML SYRINGE SQ SCH (14:51)
[2021-04-16] MEDS ORDERED: D5% in Water 1,000 ML IVC PRN (16:01)
[2021-04-16] MEDS ORDERED: *HR* Dextrose 50 % in Water (Syg) 50 ML SYRINGE IVP PRN (16:01)
[2021-04-16] MEDS ORDERED: Dextrose Gel 15 GM/37.5 ML TUBE PO PRN ×2 (16:01)
[2021-04-16] MEDS: Insulin LISPRO 300 UNITS/3 ML VIAL SUBQ SCH ×2 (17:32→23:29)
[2021-04-16] MEDS: Mirtazapine 15 MG TABLET PO SCH (20:33)
[2021-04-16] MEDS: Melatonin 3 MG TABLET PO SCH (20:33)
[2021-04-17] MEDS: Insulin LISPRO 300 UNITS/3 ML VIAL SUBQ SCH ×2 (05:39→11:50)
[2021-04-17] MEDS: Ampicillin/Sulbactam 1,500 MG in 0.9 % Sodium Chloride Mini Bag 100 ML IVPB SCH ×4 (05:40→23:32)
[2021-04-17] MEDS: Metoprolol XL (24 HR) Succ 25 MG TAB.ER.24H PO SCH (08:30)
[2021-04-17] MEDS: lisinopriL 5 MG TABLET PO SCH (08:30)
[2021-04-17] MEDS: Famotidine 20 MG TABLET PO SCH (08:30)
[2021-04-17] MEDS: Aspirin Enteric Coated 81 MG Tablet PO SCH (08:30)
[2021-04-17] MEDS: Furosemide 20 MG/2 ML VIAL IVP SCH (08:39)
[2021-04-17] MEDS: MethylPREDNISolone 40 MG/ML VIAL IVP SCH ×2 (08:40→17:13)
[2021-04-17 09:47] LABS: Basophils % 0.1 %; Hematocrit 50.6 % (35.3-44.9); Immature Granulocytes % 0.4 % (0-4); Lymphocytes # 1.3 K/mcL (0.6-4.6); Lymphocytes % 17.5 %; Mean Corpuscular HGB Conc 31.8 g/dL (31.6-35.5); Mean Corpuscular Hemoglobin 30.5 pg (28.0-33.3); Mean Corpuscular Volume 95.8 fL (83.0-100.0); Monocytes # 0.5 K/mcL (0.0-1.3); Monocytes % 6.6 %; Neutrophils # 5.7 K/mcL (1.6-8.9); Platelet Count 318 K/mcL (140-400); Red Blood Count 5.28 M/mcL (3.82-4.97); Red Cell Distribution Width 14.5 % (11.5-14.5); Segmented Neutrophils % 75.4 %; White Blood Count 7.6 K/mcL (4.3-11.1)
[2021-04-17 10:07] LABS: BUN/Creatinine Ratio 65 (6-26); Blood Urea Nitrogen 22 mg/dL (8-23); Calcium 10.2 mg/dL (8.6-10.3); Carbon Dioxide 33 mEq/L (23-29); Chloride 96 mEq/L (98-107); Glucose 124 mg/dL (70-105); Hemoglobin 16.1 g/dL (11.5-15.4); Osmolality,Calculated 307 (280-300); Potassium 4.4 mEq/L (3.5-5.1); Sodium 146 mEq/L (136-145); eGFR For African Americans > 60 (> 60); eGFR For Non-African Americans > 60 (> 60)
[2021-04-17] MEDS ORDERED: E-Z-HD (BARIUM SULF) SUSPENSION PO ONE (10:59)
[2021-04-17] MEDS ORDERED: E-Z-PAQUE (BARIUM SULF) SUSP 1 BOTTLE PO ONE (10:59)
[2021-04-17] MEDS: *HR* Enoxaparin 40 MG/0.4 ML SYRINGE SQ SCH (15:04)
[2021-04-17] MEDS: Mirtazapine 15 MG TABLET PO SCH (20:24)
[2021-04-17] MEDS: Melatonin 3 MG TABLET PO SCH (20:24)
[2021-04-18 03:01] LABS: Hematocrit 51.6 % (35.3-44.9); Hemoglobin 16.1 g/dL (11.5-15.4); Immature Granulocytes % 0.2 % (0-4); Lymphocytes # 1.2 K/mcL (0.6-4.6); Lymphocytes % 12.2 %; Mean Corpuscular HGB Conc 31.2 g/dL (31.6-35.5); Mean Corpuscular Hemoglobin 30.1 pg (28.0-33.3); Mean Corpuscular Volume 96.4 fL (83.0-100.0); Mean Platelet Volume 8.7 fL (9.4-12.4); Monocytes # 0.7 K/mcL (0.0-1.3); Monocytes % 7.6 %; Neutrophils # 7.8 K/mcL (1.6-8.9); Platelet Count 338 K/mcL (140-400); Red Blood Count 5.35 M/mcL (3.82-4.97); Red Cell Distribution Width 14.7 % (11.5-14.5); White Blood Count 9.7 K/mcL (4.3-11.1)
[2021-04-18 03:24] LABS: BUN/Creatinine Ratio 79 (6-26); Blood Urea Nitrogen 30 mg/dL (8-23); Calcium 10.6 mg/dL (8.6-10.3); Carbon Dioxide 38 mEq/L (23-29); Chloride 100 mEq/L (98-107); Glucose 142 mg/dL (70-105); Magnesium 1.7 mg/dL (1.6-2.6); Osmolality,Calculated 317 (280-300); Phosphorous 2.3 mg/dL (2.7-4.5); Sodium 149 mEq/L (136-145); eGFR For African Americans > 60 (> 60); eGFR For Non-African Americans > 60 (> 60)
[2021-04-18] MEDS: MethylPREDNISolone 40 MG/ML VIAL IVP SCH (05:57)
[2021-04-18] MEDS: Ampicillin/Sulbactam 1,500 MG in 0.9 % Sodium Chloride Mini Bag 100 ML IVPB SCH ×3 (05:57→16:56)
[2021-04-18] MEDS ORDERED: *HR* Labetalol 20 MG/4 ML SYRINGE IVP PRN (07:36)
[2021-04-18] MEDS ORDERED: Potassium Phosphate 44 MEQ in 0.9 % Sodium Chloride 250 ML IVPB ONE (07:36)
[2021-04-18] MEDS: Aspirin Enteric Coated 81 MG Tablet PO SCH (07:43)
[2021-04-18] MEDS: Famotidine 20 MG TABLET PO SCH (07:43)
[2021-04-18] MEDS: Metoprolol XL (24 HR) Succ 25 MG TAB.ER.24H PO SCH (07:44)
[2021-04-18] MEDS: lisinopriL 5 MG TABLET PO SCH (07:44)
[2021-04-18] MEDS: *HR* Enoxaparin 40 MG/0.4 ML SYRINGE SQ SCH (15:21)
[2021-04-18] MEDS: Morphine Sulfate Oral CONC 10 MG/0.5 ML ORAL.SYG SL PRN (15:21)
[2021-04-18] MEDS ORDERED: Magnesium Sulfate 1 GM/102 ML PIGGYBACK IVPB ONE (15:53)
[2021-04-18] MEDS: Mirtazapine 15 MG TABLET PO SCH (21:10)
[2021-04-18] MEDS: Melatonin 3 MG TABLET PO SCH (21:10)
[2021-04-19] MEDS: Ampicillin/Sulbactam 1,500 MG in 0.9 % Sodium Chloride Mini Bag 100 ML IVPB SCH ×2 (00:02→05:26)
[2021-04-19] MEDS ORDERED: MethylPREDNISolone 40 MG/ML VIAL IVP SCH (09:00)
[2021-04-19] MEDS: Morphine Sulfate Oral CONC 10 MG/0.5 ML ORAL.SYG SL PRN (10:19)
[2021-04-19 10:35] VITALS: BP 157/90; PULSE 86; TEMP 97.8; O2SAT 97
[2021-04-19] MEDS ORDERED: *HR* LORazepam Oral Conc 2 MG/ML PO PRN (11:48)
[2021-04-19] MEDS: Famotidine 20 MG TABLET PO SCH (12:05)
[2021-04-19] MEDS: Aspirin Enteric Coated 81 MG Tablet PO SCH (12:05)
[2021-04-19] MEDS: Metoprolol XL (24 HR) Succ 25 MG TAB.ER.24H PO SCH (12:07)
[2021-04-19] MEDS: lisinopriL 5 MG TABLET PO SCH (12:07)
== END 2021-04-19 13:05 | disposition hospice, home (50) | DRG 280 ==
LOC: EMEROOARM 03:41 → 2NENU 04:22 → 2NNU 04:43 → SUATTDRO 04:43 → 2NENU 04:52
PROVIDERS: ADMIT Internal Medicine Interventional Cardiology; ATTEND Internal Medicine